=== PATIENT | female | born 1985 | race Caucasian/White ===

== ENCOUNTER → 2020-03-02 11:11 | Outpatient (CLI) | payer OTHER, MEDICAID, SELFPAY ==
--- NOTE | 2020-03-02 | DI.MRI.S_ITS ---
PROCEDURE: MR HEAD/BRAIN WO/W CON INDICATIONS: Paresthesia of skin TECHNIQUE: Noncontrast axial T1 spin echo, axial T2 fast spin echo, sagittal and axial FLAIR, coronal T2 fast spin echo, axial gradient echo, axial diffusion and ADC through the brain. After the administration of contrast, axial and coronal 3D VIBE or T1 spin echo with fat saturation through the brain. COMPARISON: None. FINDINGS: Image quality: Excellent. CSF Spaces: Basal cisterns are patent. No extra-axial fluid collections. Ventricles are normal in size and shape. Brain: No midline shift. No intracranial bleeds or masses. No abnormal intracranial enhancement. The brainstem appears normal. Diffusion-weighted images demonstrate no acute ischemic insults. No chronic ischemic insults. Normal intravascular flow voids are present. Skull and face: Calvarial marrow is normal in signal. Orbits appear normal. Sinuses: Sinuses and mastoids appear clear. IMPRESSION: No acute intracranial finding, brain parenchymal signal abnormality, intracranial mass, or abnormal intracranial enhancement. Dictated by: Ryder Méndez M.D. on 03/02/2020 at 12:14 Approved by: Ryder Méndez M.D. on 03/02/2020 at 12:17
== END ==
PROVIDERS: Family Provider Family Medicine; PCP Family Medicine; Referring Provider Family Medicine; Visit Provider Psychiatry & Neurology Neurology
DX: G43.719 Chronic migraine without aura, intractable, without status migrainosus (principal); R20.2 Paresthesia of skin
CPT/HCPCS: 70553; A9579

== ENCOUNTER → 2020-08-08 11:41 | Outpatient (CLI) | payer OTHER, MEDICAID, SELFPAY ==
--- NOTE | 2020-08-08 11:43 | DI.RAD.S_ITS ---
PROCEDURE: XR LUMBAR SPINE MIN 4V INDICATIONS: lumbar radiculopathy TECHNIQUE: For views of the lumbar spine were acquired. COMPARISON: [facility], [facility], MRI L-SPINE W/O CONTRAST, 06/27/2018, 9:04. [facility], [facility], XR L-SPINE 2-3V, 08/16/2017, 10:17. FINDINGS: Bones: 5 nonrib-bearing vertebrae are present. There is trace retrolisthesis of L4 on L5 and L5 on S1. Severe foraminal narrowing is present L4-5 and L5-S1. Multilevel non bridging anterior osteophytes are present from L3 through L5. Moderate to severe disc space narrowing is present at L3-4, L5-S1, moderate L2-3 and L4-5. No vertebral body compression fractures. No suspicious bony lesions. Soft tissues: Overlying bowel gas pattern is normal. No suspicious soft tissue calcifications. Oblique images: No pars defects. IMPRESSION: Foraminal narrowing is most notable at L4-5 and L5-S1. Dictated by: Elicia Daniels M.D. on 08/08/2020 at 16:32 Approved by: Elicia Daniels M.D. on 08/08/2020 at 16:33
== END ==
PROVIDERS: Family Provider Family Medicine; PCP Family Medicine; Referring Provider Physical Medicine & Rehabilitation; Visit Provider Physical Medicine & Rehabilitation
DX: M54.17 Radiculopathy, lumbosacral region (principal); M48.061 Spinal stenosis, lumbar region without neurogenic claudication; M48.07 Spinal stenosis, lumbosacral region; M47.817 Spondylosis without myelopathy or radiculopathy, lumbosacral region; F20.9 Schizophrenia, unspecified; E66.01 Morbid (severe) obesity due to excess calories; Z68.41 Body mass index [BMI] 40.0-44.9, adult
CPT/HCPCS: 72110; 99214

== ENCOUNTER → 2020-09-26 14:57 | Outpatient (CLI) | payer OTHER, MEDICAID, SELFPAY ==
[2020-09-26 16:28] LABS: COVID19 -Nasal RAPID Negative (Negative)
== END ==
PROVIDERS: Family Provider Family Medicine; PCP Family Medicine; Visit Provider Physical Medicine & Rehabilitation
DX: Z20.822 Contact with and (suspected) exposure to COVID-19 (principal)
CPT/HCPCS: 87635; C9803

== ENCOUNTER 2020-09-27 14:46 | Outpatient (CLI) | payer OTHER, MEDICAID, SELFPAY ==
[2020-09-27] VITALS (8 sets, daily range): BP systolic 110–146; BP diastolic 60–91; PULSE 87–95; RESP 13–19; TEMP 36.4–36.6; O2SAT 95–99
--- NOTE | 2020-09-27 14:47 | DI.RAD.S_ITS ---
PROCEDURE: PAIN L INTERLAMINAR/CAUDAL INJ INDICATIONS: SPONDYLOSIS COMPARISON: None. FINDINGS: Fluoroscopic spot filming was performed to verify placement of spinal needles at the L4-L5 level(s), as labeled on the films. Appropriate location(s) of the needle tip(s) was confirmed by injection of iodinated contrast. Dictated by: Jaren Grady M.D. on 09/27/2020 at 16:42 Approved by: Jaren Grady M.D. on 09/27/2020 at 16:43
[2020-09-27] MEDS: MIDAZOLAM 5 MG/5 ML VIAL IV (15:11)
[2020-09-27] MEDS: fentaNYL 100 MCG/2 ML INJ 50 MCG IV (15:11)
[2020-09-27] MEDS: IOPAMIDOL 15 ML VIAL 3 ML INJ (15:17)
[2020-09-27] MEDS: BUPIVACAINE 0.25% (PF) VIAL 5 ML SUBCUT (15:17)
[2020-09-27] MEDS: DEXAMETHASONE 10 MG/ML VIAL 20 MG INJ (15:18)
[2020-09-27] MEDS: BETAMETHASONE 30 MG/5 ML MDV 6 MG INJ (15:18)
--- NOTE | 2020-09-27 15:24 | P.PCN_ITS ---
Date/Time/Diagnoses Date of procedure: 09/27/20 Time of procedure: 15:24 Pre-procedure diagnosis: 1. HNP WITH RADICULAR FEATURES, 2. MULTILEVEL CENTRAL STENOSIS, Post-procedure diagnosis: same Procedure Notes Procedure: 1. FLUOROSCOPICALLY GUIDED CONTRAST CONTROLLED INTERLAMINAR EPIDURAL STEROID INJECTION -L4/5 Indications: Edith is referred by Dr. Ryan for treatment of Bilateral Foraminal Stenosis R>L LE symptoms. Physician: Dk De Total Fluoroscopy time (seconds): 7 Total sedation minutes: 8 Complications: none Procedure in detail & Post-procedure care: FINDINGS Multilevel Central Spinal Stenosis with Nerve Root Compression DESCRIPTION OF PROCEDURE Fluoroscopically guided, contrast-controlled L4/5 translaminar epidural steroid injection. Following review of allergy and review of potential side effects and complications, including, but not necessarily limited to, infection, allergic reaction, local tissue breakdown, temporary as well as permanent nerve injury, paralysis, stroke and possible , the patient indicated that the patient understood and agreed to proceed. An informed consent document was signed by the patient, witnessed by a nurse, and placed in the patient's chart. Additionally, other treatment options including modalities, medications, and physical therapy were reviewed with the patient. After review of previous anaesthesic history and IV conscious sedation the patient was deemed safe to proceed with today?s procedure with IV conscious sedation as ASA class II designation. Safety time-out was performed to confirm patient ID, procedure to be performed and site of procedure. IV sedation was accomplished with a combination of 2mg of Versed and 50mcg of Fentanyl was administered by the RN after DO order, titrated to patient comfort during the course of the procedure while the patient remained responsive to all verbal commands In the prone position, following sterile prep and drape of the lumbar region, the L4/5 translaminar space was identified fluoroscopically. The skin was anesthetized via a 25-gauge, 1.5inch needle with 1% lidocaine solution. At this point, a 22-gauge short bevel spinal needle was atraumatically introduced and advanced under fluoroscopic guidance into the region of the L4/5 translaminar space. Depth was confirmed on lateral view. Radiological data, including multiple fluoroscopic views of the lumbar spine, reveal a spinal needle at the L4/5 translaminar space. Lateral views then show placement of the needle in the epidural space. Subsequent views show contrast material flowing superiorly and inferiorly in the epidural space. No vascular or intrathecal uptake is observed. At this point, using loss of resistance technique with saline and air, the epidural space was entered. This was confirmed following negative aspiration with injection of approximately 1.5cc of Isovue 200, showing excellent epidural flow without vascular or intrathecal uptake. At this point, 1cc of 1% lidocaine solution combined with 3cc or 20mg of dexamethasone and 6mg betamethasone was injected without incident. The patient tolerated the procedure well without signs or symptoms of complica tions prior to transfer to the recovery area continued monitoring without incident. The patient was then transferred to the recovery area where they were observed for an appropriate period of time after the injection. The patient reported a VAS score of 6 prior to the procedure and a post- procedure VAS of 0. POST OP INSTRUCTIONS The patient was provided a Pain Log to continue to record their response to the target-specific procedure prior to follow-up visit with their referring physician. Additionally, specific post-injection care instructions and a contact number to our office were provided if concerns arise regarding possible complications associated with the procedure are suspected.
== END 2020-09-27 15:41 | disposition home or self-care (01) ==
LOC: RAD 14:46
PROVIDERS: Family Provider Family Medicine; PCP Family Medicine; Referring Provider Physical Medicine & Rehabilitation; Visit Provider Physical Medicine & Rehabilitation
DX: M51.16 Intervertebral disc disorders with radiculopathy, lumbar region (principal); M48.061 Spinal stenosis, lumbar region without neurogenic claudication
CPT/HCPCS: 62323; J0702; J1100; J2250; J3010

== ENCOUNTER 2020-10-07 16:14 | Emergency (ER) | payer OTHER, MEDICAID, SELFPAY ==
[2020-10-07 16:28] VITALS: BP 131/99; PULSE 126; RESP 19; TEMP 36.7; O2SAT 98; BMI 46.2
--- NOTE | 2020-10-07 17:06 | PC.NURSE ---
Pt had steroid injection on 09/28 in back for chronic pain. This exacerbated her anxiety and she ran out of diazepam. Pt is mildly autistic, per caregiver report. Pt sitting up on bed, slightly rocking side to side.
[2020-10-07] MEDS: LORazepam 0.5 MG TABLET 1 MG PO ×2 (18:05→18:47)
--- NOTE | 2020-10-07 18:45 | ED_ITS ---
HPI - Anxiety <ANDREY Blair - Last Filed: 10/07/20 19:43> General Chief Complaint: Anxiety Stated Complaint: ANXIETY Time Seen by Provider: 10/07/20 17:04 Source: patient and other Mode of arrival: Family Vehicle Limitations: no limitations History of Present Illness HPI narrative: This is a 35-year-old female, former smoker, who presents to ED with caregiver Sol with chief complain of feeling agitated and having anxiety all day for a week after receiving a steroid injection in the back at the pain clinic by Dr. De on 09/27/20. Patient has past medical history signi ficant for chronic back pain, schizophrenia, primary insomnia, ADHD, chronic fatigue, DDD. Patient reports she is known to have sensitivity to oral steroids but it has not been real lasting this long. She has been having symptoms such as agitation, anxiety, insomnia for 1 week and has not been able to sleep more than 2 hours a day. Patient was discharged to home with Valium but this medication has ran out. Otherwise she denies chest pain, breathing difficulty, unable to tolerate fluids, abdominal pain, or fever. She is not able to take Benadryl due to rest leg syndrome which interferes with sleep even more. Patient takes Zyprexa 10 mg at night which has not being helping with sleep. Patient attempted to see her primary care physician Dr. Brown but was not able to get an appointment and when she tried to reach out to Dr. De is a day the office is closed. She recommended for ED visit and treatment per PCP. Patient reports her back pain is 80% improved since the steroid injection however. Related Data Home Medications Medication Instructions Recorded Confirmed buspar 7.5 mg PO BID 03/23/19 08/08/20 olanzapine 15 mg tablet 15 mg PO DAILY 03/23/19 10/07/20 omeprazole 40 mg capsule,delayed 40 mg PO DAILY 03/23/19 08/08/20 release gabapentin 800 mg tablet mg PO TID tab 08/08/20 08/08/20 meloxicam 15 mg tablet mg PO DAILY tab 08/08/20 08/08/20 polyethylene glycol 3350 17 8.5 g PO DAILY PRN g 08/08/20 08/08/20 gram/dose oral powder sertraline 50 mg tablet 100 mg PO DAILY tab 08/08/20 10/07/20 hydrocodone-acetaminophen 1 tab PO Q6HP PRN 10/07/20 10/07/20 Previous Rx's Medication Instructions Recorded sumatriptan succinate [Imitrex] 25 mg PO SEE INSTRUCTIONS PRN #9 07/18/16 tab lidocaine 5 % topical patch 1 patch TOP DAILY #30 each MDD 12 04/15/19 hours in a 24 hour period diazepam 10 mg tablet 10 mg PO .COMPLEX PRN #10 tab 08/08/20 lorazepam [Ativan] 1 - 2 mg PO BEDTIME PRN #5 tab 10/07/20 Allergies Allergy/AdvReac Type Severity Reaction Status Date / Time Penicillins [PENICILLINS] Allergy Intermediate RASH Verified 10/07/20 16:36 Sulfa (Sulfonamide Allergy Intermediate RASH Verified 10/07/20 16:36 Antibiotics) [SULFA (SULFONAMIDE ANTIBIOTICS)] Review of Systems <ANDREY Blair - Last Filed: 10/07/20 19:43> Review of Systems Narrative: General: Denies fever, chills, fatigue, malaise, sweats. HEENT: Denies sinus pain, ear pain, sore throat, difficulty swallowing, dizziness. Respiratory: Denies dyspnea, cough, wheezing, hemoptysis, sputum. Cardiovascular: Denies chest pain, palpitations, orthopnea, edema. Gastrointestinal: Denies (+) nausea, vomiting, abdominal pain, diarrhea, constipation, melena. : Denies dysuria, frequency, incontinence, hematuria, urinary retention. Musculoskeletal: Denies weakness, joint pain or bony pain. Skin: Denies rash, skin lesions, or other. Neurologic: See HPI Psychiatric: No concerning psychosocial issues. 12-point review of systems is negative except for those stated above. Patient History <ANDREY Blair - Last Filed: 10/07/20 19:43> Medical History Morbid obesity due to excess calories Social History Smoking Status: Former smoker Smoking Status: Former smoker tobacco type: cigarettes alcohol intake frequency: 0-2 drinks per day Substance Use Type: marijuana Exam <ANDREY Blair - Last Filed: 10/07/20 19:43> Narrative Exam Narrative: GEN: Alert, oriented x 3, well appearing and nourished and appears to be anxious rocking back and forth while sitting in bed. Head: Normal cephalic, atraumatic. No scalp or temporal tenderness, palpable mass or rash. EYES: Pupils are equal, round, and reactive to light and accommodation. Extraocular muscles are intact bilaterally. There is no subconjunctival hemorrhage, exudate and sclera non-icteric. ENT: Hearing grossly intact. Mucous membrane moist, no mucosal lesion. Throat without erythema, tonsillar hypertrophy or exudate. Uvula in midline, airway patent. Neck: Trachea in midline. No JVD, non-tender without lymphadenopathy. No masses or thyroid megaly. Supple, non-tender and no meningeal signs. CARDIAC: Normal regular rate and rhythm without murmurs, gallops, or rubs. No chest wall tenderness. No peripheral edema, cyanosis or pallor. Capillary refill is less than 2 seconds. RESPIRATORY: Lungs are clear to auscultate bilaterally. No cough, wheezes, rales, or rhonchi. No stridor, respiratory distress, increase work of breathing, or accessary muscle used. ABD: Abdomen soft, nontender and non-distended. No guarding or rebound tenderness to palpate. Bowel sounds are normal in all 4 quadrants. There is no palpable masses or organomegaly. EXT: Full painless ROM of all extremities with no loss of sensation, strength, effusion or edema. SKIN: Warm, dry, normal color for patient. No erythema, lesions or rash over visible areas. BACK: Nontender without deformity or crepitance. No flank tenderness. NEUROLOGICAL: Alert and oriented to place, time and person. Sensation and motor function intact bilaterally. No facial droops, dysphasia. PSYCHIATRIC: Good judgement and reason, without hallucinations during the examination. Patient is not suicidal. Initial Vital Signs Initial Vital Signs: Vital Signs Temperature 98.1 F 10/07/20 16:28 Pulse Rate 126 H 10/07/20 16:28 Respiratory Rate 19 10/07/20 16:28 Blood Pressure 131/99 H 10/07/20 16:28 Pulse Oximetry 98 10/07/20 16:28 <Patricia Fofana, DO - Last Filed: 10/08/20 07:16> Initial Vital Signs Initial Vital Signs: Vital Signs Temperature 98.1 F 10/07/20 16:28 Pulse Rate 126 H 10/07/20 16:28 Respiratory Rate 19 10/07/20 16:28 Blood Pressure 131/99 H 10/07/20 16:28 Pulse Oximetry 98 10/07/20 16:28 Scores <YANY BlairP - Last Filed: 10/07/20 19:43> GCS Nataly coma scale eye opening: Spontaneous Nataly coma scale verbal response: Orientated Nataly coma scale motor response: Obey commands Nataly coma scale total score: 15 Course <YANY BlairP - Last Filed: 10/07/20 19:43> Orders Ordered: Discontinued Medications Lorazepam (Lorazepam 0.5 Mg Tablet) 1 mg PO NOW ONE Stop: 10/07/20 17:57 Last Admin: 10/07/20 18:05 Dose: 1 mg Documented by: SOTO Lorazepam (Lorazepam 0.5 Mg Tablet) 1 mg PO NOW ONE Stop: 10/07/20 18:45 Last Admin: 10/07/20 18:47 Dose: 1 mg Documented by: SOTO Reevaluation(s) Reevaluation #1: Patient medicated with additional Ativan 1 mg total 2 mg since was insufficient with 1 mg initially. Patient reports feeling much improved and ready to go home. Time: 19:00 Vital Signs Vital signs: Vital Signs - 8 hr 10/07/20 16:28 Temperature 98.1 F Pulse Rate 126 H Respiratory Rate 19 Blood Pressure 131/99 H Pulse Oximetry 98 <Patricia Fofana DO - Last Filed: 10/08/20 07:16> Orders Ordered: Discontinued Medications Lorazepam (Lorazepam 0.5 Mg Tablet) 1 mg PO NOW ONE Stop: 10/07/20 17:57 Last Admin: 10/07/20 18:05 Dose: 1 mg Documented by: SOTO Lorazepam (Lorazepam 0.5 Mg Tablet) 1 mg PO NOW ONE Stop: 10/07/20 18:45 Last Admin: 10/07/20 18:47 Dose: 1 mg Documented by: SOTO Vital Signs Vital signs: Vital Signs - 8 hr 10/07/20 16:28 Temperature 98.1 F Pulse Rate 126 H Respiratory Rate 19 Blood Pressure 131/99 H Pulse Oximetry 98 MDM - Anxiety <ANDREY Blair - Last Filed: 10/07/20 19:43> Differential Diagnosis Differential diagnosis: Likely acute anxiety and other (Insomnia, side effects from medication) Medical Records Attestation: I reviewed the patient's medical records. [facility] Narrative Medical decision making narrative: This is a 35-year-old female who presents to ED with caregiver with chief complain of feeling agitated and insomnia after she received steroid injection in her back for chronic back pain 10 days ago at pain clinic by Dr. De. Patient reports had used all her Valium when she was discharged after the procedure and presents to ED for treatment after she was not able to evaluate by her primary care physician today. Patient was medicated with 1 mg Ativan increment twice with good effect. Patient discharged to home with few tabs of Ativan over a week and use and advised to follow up with her primary care physician and call Dr. De office Saturday to discuss findings since her symptoms are likely sensitivity to steroids as she has known steroids sensitivity. Return precautions discussed with patient and she verbalized understanding in agreement with the treatment plan. Discharge Plan Departure Patient Disposition: Home Clinical Impression: Anxiety, Drug side effects Instructions: DI for Anxiety -- Adult Activity Restrictions/Additional Instructions: You have been diagnosed with [anxiety possibly as side effect from steroids]. What to do: *Take your medications as directed. Please take Ativan as needed for your symptoms. You can take 1-2 tabs as needed. Please avoid taking it with other sedating medications such as Zyprexa, [place] since this can add increasing in sedation. This medication has been transmitted to [facility] in [place]. *Follow up with your primary care provider/Dr. De on Saturday, call for an appointment. Let them know you were seen in the ED and that we asked you to be seen in follow up. *Return to ED if you have any new, worsening, or concerning symptoms, such as [worsening symptoms, chest pain, breathing difficulty, unable to tolerate fluids, fever or any acute concerns]. Prescriptions: New lorazepam [Ativan] 1 mg tablet 1 - 2 mg PO BEDTIME PRN (Reason: anxiety) Qty: 5 RF: 0 No Action sumatriptan succinate [Imitrex] 25 MG tablet 25 mg PO SEE INSTRUCTIONS PRNQty: 9 RF: 5 lidocaine 5 % adhesive patch,medicated 1 patch TOP DAILY MDD 12 hours in a 24 hour period Qty: 30 RF: 2 hydrocodone-acetaminophen 5 MG/325 MG tablet 1 tab PO Q6HP PRN (Reason: Back Pain) RF: 0 buspar 7.5 mg PO BID RF: 0 olanzapine [Zyprexa] 15 mg tablet 15 mg PO DAILY RF: 0 omeprazole 40 mg capsule,delayed release(DR/EC) 40 mg PO DAILY RF: 0 sertraline 50 mg tablet 100 mg PO DAILY RF: 0 gabapentin 800 mg tablet PO TID RF: 0 meloxicam 15 mg tablet PO DAILY RF: 0 polyethylene glycol 3350 17 gram/dose powder 8.5 g PO DAILY PRNRF: 0 diazepam [Valium] 10 mg tablet 10 mg PO .COMPLEX PRN (Reason: sedation) Qty: 10 RF: 0 Referrals: Winston Ryan MD [Primary Care Provider] - <Patricia Fofana DO - Last Filed: 10/08/20 07:16> Cosign ED Attending Coshectorature Attestation: I was immediately available in the department for consultation. Documentation has been reviewed.
[2020-10-07 19:39] VITALS: BP 118/88; PULSE 88; RESP 14; O2SAT 99
== END 2020-10-07 19:40 | disposition home or self-care (01) ==
PROVIDERS: Emergency Provider Nurse Practitioner Family; Family Provider Family Medicine; PCP Family Medicine
DX: F41.1 Generalized anxiety disorder (principal); G47.00 Insomnia, unspecified; T50.905A Adverse effect of unspecified drugs, medicaments and biological substances, initial encounter
CPT/HCPCS: 99281; 99283

== ENCOUNTER → 2021-02-20 08:10 | Outpatient (CLI) | payer OTHER, MEDICAID, SELFPAY ==
[2021-02-20 16:08] LABS: COVID19 -Nasal RAPID Negative (Negative)
== END ==
PROVIDERS: Family Provider Family Medicine; PCP Family Medicine; Visit Provider Physical Medicine & Rehabilitation
DX: Z20.822 Contact with and (suspected) exposure to COVID-19 (principal)
CPT/HCPCS: 87635; C9803

== ENCOUNTER 2021-02-21 15:21 | Outpatient (CLI) | payer OTHER, MEDICAID, SELFPAY ==
[2021-02-21] VITALS (8 sets, daily range): BP systolic 109–176; BP diastolic 65–101; PULSE 98–123; RESP 15–22; TEMP 36.7; O2SAT 95–98
--- NOTE | 2021-02-21 15:23 | DI.RAD.S_ITS ---
PROCEDURE: PAIN L INTERLAMINAR/CAUDAL INJ INDICATIONS: SPONDYLOSIS COMPARISON: [facility], XA, PAIN L INTERLAMINAR/CAUDAL INJ, 09/27/2020, 15:13. FINDINGS: Fluoroscopic spot filming was performed to verify placement of spinal needles at the dorsal L3-4 level level(s), as labeled on the films. Appropriate location(s) of the needle tip(s) was confirmed by injection of iodinated contrast. IMPRESSION: L3-4 needle tip localization for translaminar epidural steroid injection. Dictated by: Maikol Newton M.D. on 02/21/2021 at 17:33 Approved by: Maikol Newton M.D. on 02/21/2021 at 17:33
[2021-02-21] MEDS: fentaNYL 100 MCG/2 ML INJ 50 MCG IV (16:07)
[2021-02-21] MEDS: MIDAZOLAM 5 MG/5 ML VIAL IV (16:07)
[2021-02-21] MEDS: IOPAMIDOL 15 ML VIAL 3 ML INJ (16:11)
[2021-02-21] MEDS: DEXAMETHASONE 10 MG/ML VIAL 20 MG INJ (16:12)
[2021-02-21] MEDS: BETAMETHASONE 30 MG/5 ML MDV 6 MG INJ (16:12)
[2021-02-21] MEDS: BUPIVACAINE 0.25% (PF) VIAL 2 ML INJ (16:12)
--- NOTE | 2021-02-21 16:21 | P.PCN_ITS ---
Date/Time/Diagnoses Date of procedure: 02/21/21 Time of procedure: 16:22 Pre-procedure diagnosis: 1. HNP WITH RADICULAR FEATURES, 2. MULTILEVEL CENTRAL STENOSIS, Post-procedure diagnosis: same Procedure Notes Procedure: 1. FLUOROSCOPICALLY GUIDED CONTRAST CONTROLLED INTERLAMINAR EPIDURAL STEROID INJECTION - L3/4 Indications: Edith is referred by Dr. Ryan for treatment of Bilateral Foraminal Stenosis L>R LE symptoms. Physician: Dk De Total Fluoroscopy time (seconds): 9 Total sedation minutes: 9 Complications: none Procedure in detail & Post-procedure care: FINDINGS Multilevel Central Spinal Stenosis with Nerve Root Compression DESCRIPTION OF PROCEDURE Fluoroscopically guided, contrast-controlled L3/4 translaminar epidural steroid injection. Following review of allergy and review of potential side effects and complications, including, but not necessarily limited to, infection, allergic reaction, local tissue breakdown, temporary as well as permanent nerve injury, paralysis, stroke and possible , the patient indicated that the patient understood and agreed to proceed. An informed consent document was signed by the patient, witnessed by a nurse, and placed in the patient's chart. Additionally, other treatment options including modalities, medications, and physical therapy were reviewed with the patient. After review of previous anaesthesic history and IV conscious sedation the patient was deemed safe to proceed with today?s procedure with IV conscious sedation as ASA class II designation. Safety time-out was performed to confirm patient ID, procedure to be performed and site of procedure. IV sedation was accomplished with a combination of 2mg of Versed and 50mcg of Fentanyl was administered by the RN after DO order, titrated to patient comfort during the course of the procedure while the patient remained responsive to all verbal commands. In the prone position, following sterile prep and drape of the lumbar region, the L3/4 translaminar space was identified fluoroscopically. The skin was anesthetized via a 25-gauge, 1.5-inch needle with 1% lidocaine solution. At this point, a 22-gauge short bevel spinal needle was atraumatically introduced and advanced under fluoroscopic guidance into the region of the L3/4 translaminar space. Depth was confirmed on lateral view. Radiological data, including multiple fluoroscopic views of the lumbar spine, reveal a spinal needle at the L3/4 translaminar space. Lateral views then show placement of the needle in the epidural space. Subsequent views show contrast material flowing superiorly and inferiorly in the epidural space. No vascular or intrathecal uptake is observed. At this point, using loss of resistance technique with saline and air, the epidural space was entered. This was confirmed following negative aspiration with injection of approximately 1.5 cc of Isovue 200, showing excellent epidural flow without vascular or intrathecal uptake. At this point, 1cc of 1% lidocaine solution combined with 3cc or 20mg of dexamethasone and 6mg of betamethasone was injected without incident. The patient tolerated the procedure well without signs or symptoms of complications prior to transfer to the recovery area continued monitoring without incident. The patient was then transferred to the recovery area where they were observed for an appropriate period of time after the injection. The patient reported a VAS score of 6 prior to the procedure and a post- procedure VAS of 0. POST OP INSTRUCTIONS The patient was provided a Pain Log to continue to record their response to the target-specific procedure prior to follow-up visit with their referring physician. Additionally, specific post-injection care instructions and a contact number to our office were provided if concerns arise regarding possible complications associated with the procedure are suspected.
== END 2021-02-21 16:37 | disposition home or self-care (01) ==
LOC: RAD 15:22
PROVIDERS: Family Provider Family Medicine; PCP Family Medicine; Referring Provider Physical Medicine & Rehabilitation; Visit Provider Physical Medicine & Rehabilitation
DX: M51.16 Intervertebral disc disorders with radiculopathy, lumbar region (principal); M48.061 Spinal stenosis, lumbar region without neurogenic claudication
CPT/HCPCS: 62323; J0702; J1100; J2250; J3010

== ENCOUNTER → 2021-10-23 16:42 | Outpatient (CLI) | payer OTHER, MEDICAID, SELFPAY ==
--- NOTE | 2021-10-23 16:44 | DI.RAD.S_ITS ---
PROCEDURE: XR CERVICAL SPINE 4V OR 5V INDICATIONS: neck pain and UE symptoms TECHNIQUE: 3 views of the cervical spine acquired. COMPARISON: None. FINDINGS: Bones: Straightening of the normal cervical lordosis may be related to muscle spasm or positioning. Disc space narrowing anterior osteophytes no in the mid cervical spine. Bone mineralization and craniovertebral relationships normal. Soft tissues: No prevertebral soft tissue swelling. IMPRESSION: Straightening of the normal cervical lordosis may be related to muscle spasm or positioning. Degenerative disc disease and arthropathy in the mid cervical spine Approved by: Kevyn Roman M.D. on 10/23/2021 at 16:34
--- NOTE | 2021-10-23 16:44 | DI.RAD.S_ITS ---
PROCEDURE: XR THORACIC SPINE 3V INDICATIONS: thoracic pain TECHNIQUE: 3 views of the thoracic spine were acquired. COMPARISON: [facility], , THORACIC SPINE 3 VIEWS, 01/07/2017, 17:22. FINDINGS: Bones: No fractures or dislocations. No suspicious bony lesions. 12 pairs of ribs are noted, and appear intact where visualized. Mild thoracic dextroscoliosis again noted, stable. Mild degenerative disc space narrowing present in the mid thoracic spine. Soft tissues: No paravertebral stripe thickening. IMPRESSION: Mild degenerative changes without fracture or malalignment. Approved by: Kevyn Roman M.D. on 10/23/2021 at 16:41
--- NOTE | 2021-10-23 16:44 | DI.MRI.S_ITS ---
PROCEDURE: MR CERVICAL SPINE WO CON INDICATIONS: cervical radiculopathy TECHNIQUE: Noncontrast sagittal T1 spin echo and T2 fast spin echo, sagittal STIR, foraminal oblique sagittal T2 fast spin echo, and axial gradient echo or T2 fast spin echo through the cervical spine. COMPARISON: [facility], CR, XR CERVICAL SPINE 4V OR 5V, 10/23/2021, 16:34. FINDINGS: Degenerative straightening of the usual cervical lordosis. Otherwise normal alignment. Vertebral body heights maintained. No suspicious focal marrow signal abnormality or bone marrow edema. Susceptibility artifact suggestive of possible ossification of the posterior longitudinal ligament at multiple levels. Prevertebral and paraspinous soft tissues are within normal limits. Normal morphology and signal intensity of the cervical cord. There is no syrinx. C2-C3: Moderate right and mild left neural foraminal stenosis due to facet and uncovertebral hypertrophy. No spinal canal stenosis. C3-C4: Moderate to severe neural foraminal narrowing on the right and mild neural foraminal narrowing on the left due to facet and uncovertebral hypertrophy. No spinal canal stenosis. C4-C5: No spinal canal stenosis. Moderate right and mild left neural foraminal stenosis due to facet and uncovertebral hypertrophy. C5-C6: Mild bilateral neural foraminal stenosis due to facet and uncovertebral hypertrophy. Mild spinal canal stenosis due to posterior disc osteophyte complex flattening and indenting the ventral cord, particularly in the right paracentral zone and lateral recess. C6-C7: No spinal canal stenosis. Facet and uncovertebral hypertrophy combine to produce moderate left and mild right neural foraminal stenosis. C7-T1: No spinal canal or neural foraminal stenosis. IMPRESSION: Varying degrees of neural foraminal stenosis up to moderate-severe. Mild spinal canal stenosis at C5-C6. 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 Dictated by: Ryder Méndez M.D. on 10/24/2021 at 9:57 Approved by: Ryder Méndez M.D. on 10/24/2021 at 10:00
--- NOTE | 2021-10-23 16:47 | DI.RAD.S_ITS ---
PROCEDURE: XR CHEST 2V INDICATIONS: Chest pain TECHNIQUE: 2 views of the chest were acquired. COMPARISON: None. FINDINGS: Surgical changes and devices: None. Lungs and pleura: Lungs are clear. No pleural effusions or pneumothorax. Mediastinum: Mediastinal contours are normal. Heart size is normal. Bones and chest wall: No suspicious bony abnormalities. Soft tissues appear unremarkable. IMPRESSION: No acute cardiopulmonary process demonstrated radiographically. Dictated by: Ryder Méndez M.D. on 10/24/2021 at 8:20 Approved by: Ryder Méndez M.D. on 10/24/2021 at 8:23
== END ==
PROVIDERS: Family Provider Family Medicine; PCP Family Medicine; Referring Provider Orthopaedic Surgery; Visit Provider Physical Medicine & Rehabilitation
DX: M47.22 Other spondylosis with radiculopathy, cervical region (principal); M50.10 Cervical disc disorder with radiculopathy, unspecified cervical region; M48.02 Spinal stenosis, cervical region; M47.814 Spondylosis without myelopathy or radiculopathy, thoracic region; S39.012A Strain of muscle, fascia and tendon of lower back, initial encounter; R07.9 Chest pain, unspecified
CPT/HCPCS: 71046; 72050; 72072; 72141

== ENCOUNTER 2022-04-12 15:13 | Emergency (ER) | payer OTHER, MEDICAID, SELFPAY ==
[2022-04-12] VITALS (15 sets, daily range): BP systolic 127–167; BP diastolic 85–109; PULSE 98–142; RESP 10–32; TEMP 37.1; O2SAT 95–99; BMI 44.2
[2022-04-12 16:48] LABS: Add Manual Diff / Slide Review NO; Basophils Absolute Auto 0 /uL (0-100); Basophils Percent Auto 0.3 % (0-2); Eosinophils Absolute Auto 400 /uL (0-450); Lymphocytes Absolute Auto 1300 /uL (1100-4500); Lymphocytes Percent Auto 13.9 % (25-40); Mean Corpuscular HGB Conc 34.2 % (30-36); Mean Corpuscular Hemoglobin 29.6 PG (26-34); Mean Corpuscular Volume 86.5 fL (80-100); Monocytes Absolute Auto 400 /uL (0-900); Monocytes Percent Auto 4.7 % (3-14); Neutrophils Absolute Auto 7200 /uL (1500-7000); Neutrophils Percent Auto 77.1 % (50-75); Platelet Count 225 X10^3/uL (150-400); Red Blood Cell Count 4.05 X10^6/uL (4.0-5.2); Red Cell Distribution Width 13.1 % (11.6-14.8); White Blood Cell Count 9.3 X10^3/uL (4.5-11.0)
[2022-04-12 17:06] LABS: Alanine Aminotransferase 247 IU/L (<35); Albumin 4.2 g/dL (3.5-5.0); Albumin Globulin Ratio 1.4 (1.0-2.8); Alkaline Phosphatase 101 U/L (38-126); Aspartate Aminotransferase 367 IU/L (14-36); BUN Creatinine Ratio 19.3 (6-22); Bilirubin Total 1.4 mg/dL (0.2-1.3); Blood Urea Nitrogen 11 mg/dL (7-17); Calcium 8.5 mg/dL (8.4-10.2); Carbon Dioxide 27 mmol/L (22-32); Chloride 101 mmol/L (98-107); Estimated Glomerular Filt Rate > 60 mL/min (>60); Globulin 3.1 g/dL (1.7-4.1); Glucose 99 mg/dL (70-100); HEMOLYSIS < 15 (0-50); Lipase 50 U/L (23-300); Potassium 4.1 mmol/L (3.4-5.1); Sodium 139 mmol/L (137-145); Total Protein 7.3 g/dL (6.3-8.2)
--- NOTE | 2022-04-12 17:19 | DI.US.S_ITS ---
PROCEDURE: US ABDOMEN LIMITED INDICATIONS: RUQ TECHNIQUE: Real-time focused scanning was performed of the abdomen, with image documentation. COMPARISON: None. FINDINGS: Hepatomegaly. Diffuse increased echogenicity of the liver consistent with fatty change. Gallbladder is suboptimally visualized. No obvious stones. No significant wall thickening. Question edematous pancreas. IMPRESSION: 1. Hepatomegaly, diffuse hepatic steatosis. 2. Suboptimal visualization of the gallbladder, likely within normal limits. 3. Question pancreatic edema. Comment: Consider CT abdomen pelvis with contrast. Dictated by: Brendan Morocho M.D. on 04/12/2022 at 18:06 Approved by: Brendan Morocho M.D. on 04/12/2022 at 18:09
--- NOTE | 2022-04-12 17:20 | ED_ITS ---
HPI - Sepsis <ANDREY Garcia - Last Filed: 04/13/22 13:53> General Chief Complaint: Abdominal Pain Mode of arrival: Family Vehicle Source: patient Limitations: no limitations Evaluation Sepsis Screen: No Definite Risk Sepsis Infection Criteria Present: None Narrative: This is a 36-year-old female presents to the emergency department 1 week after a barium swallow for esophageal motility dysfunction and epigastric pain with testing completed at [facility] in [place]. Records have been requested, she comes in with worsening epigastric pain, esophageal motility concern and fear of aspiration. Patient is currently on a GERD diet, her primary care provider is Dr. Cazares, saw a Dr. Braga with Gastroenterology and has been taking omeprazole 40 mg daily. She has been instructed to use antacids as much as possible and she states she has been chewing them up. She denies having history of diabetes, states she is allergic to penicillin and sulfa. Patient also has a history of morbid obesity, NAIMA, states that she has dysphagia per her recent barium swallow at [facility], records were requested but no results were sent over from this scan. Patient had esophageal dilatation and EGD at [facility] on 01/25/2022. She states it was better for a while afterwards and then it got worse again. She states the pain across her upper abdomen has been worse than ever, she denies nausea and vomiting but states it feels like it is burning and she is had some small amounts of bright red blood in her stool. She states this has happened in the past, denies any known hemorrhoids, denies any rectal pain or pain with defecation. Denies any dysuria, flank pain, urinary urgency or frequency. Patient states that there is no chance of she states she is ?fixed? her boyfriend lives in [facility] and she is not sexually active. Patient endorses feeling hot and cold but denies chills or measured fever. Review of Systems <ANDREY Garcia - Last Filed: 04/13/22 13:53> Review of Systems Narrative: Review of systems is negative for acute abnormalities unless otherwise noted in HPI Patient History <ANDREY Garcia - Last Filed: 04/13/22 13:53> Medical History Cervical radiculopathy Morbid obesity due to excess calories Social History Smoking Status: Former smoker Smoking Status: Former smoker tobacco type: cigarettes alcohol intake frequency: 0-2 drinks per day Substance Use Type: marijuana Exam <ANDREY Garcia - Last Filed: 04/13/22 13:53> Narrative Exam Narrative: Reviewed vitals signs and nursing notes. General: cooperative, comfortable, in no acute distress, well groomed HEENT: symmetrical facial expressions, moist mucous membranes, EOMI, without stridor, no swallowing difficulties Cardiovascular: Tachycardic rate and regular rhythm, no murmur, no peripheral edema, warm extremities Respiratory: normal effort, able to speak in complete sentences, without wheezing, stridor, or abnormal breath sounds. No retractions or tachypnea. Breath sounds clear throughout all gu[place]pa GI: abdomen soft, tender to palpation in her epigastrium, obese, soft, nondistended, without masses, rebound tenderness or exquisite tenderness with exam. MSK: moves all extremities, neurovascularly intact, no weakness, normal tone Skin: brisk capillary refill, without pallor or erythema Neuro: normal speech and cognition, A&O x3, ambulatory, clear speech Psych: mental status is grossly normal, congruent mood, normal affect, pleasant and cooperative Initial Vital Signs Initial Vital Signs: Vital Signs Pulse Rate 142 H 04/12/22 16:26 Respiratory Rate 13 04/12/22 16:26 Pulse Oximetry 96 04/12/22 16:26 <Patricia Fofana DO - Last Filed: 04/13/22 06:49> Initial Vital Signs Initial Vital Signs: Vital Signs Pulse Rate 142 H 04/12/22 16:26 Respiratory Rate 13 04/12/22 16:26 Pulse Oximetry 96 04/12/22 16:26 Course <ANDREY Garcia - Last Filed: 04/13/22 13:53> Orders Ordered: Discontinued Medications Al Hydrox/Mg Hydrox/Simethicone 20 ml/ Lidocaine HCl 15 ml 0 ml PO NOW ONE Stop: 04/12/22 17:07 Last Admin: 04/12/22 17:56 Dose: 35 ml Documented By: JUAN MANUEL Diazepam (Diazepam 10 Mg/2 Ml Syringe) 5 mg IV NOW ONE Stop: 04/12/22 17:07 Last Admin: 04/12/22 17:54 Dose: 5 mg Documented By: JUAN MANUEL Hydromorphone HCl (Hydromorphone 1 Mg Inj) 1 mg IV NOW ONE Stop: 04/12/22 17:07 Last Admin: 04/12/22 17:53 Dose: 1 mg Documented By: JUAN MANUEL Hydromorphone HCl (Hydromorphone 1 Mg Inj) 1 mg IV NOW ONE Stop: 04/12/22 22:02 Last Admin: 04/12/22 22:14 Dose: 1 mg Documented By: JORDY Lactated Ringer's (Lactated Ringers) 1,000 mls @ 1,000 mls/hr IV BOLUS ONE Stop: 04/12/22 18:18 Last Infusion: 04/12/22 21:24 Dose: 0 mls/hr Documented By: Admin: 04/12/22 18:01 Dose: 1,000 mls/hr Documented By: JUAN MANUEL Sodium Chloride (Normal Saline 0.9%) 1,000 mls @ 1,000 mls/hr IV BOLUS ONE Stop: 04/12/22 22:55 Ketorolac Tromethamine (Ketorolac 30 Mg/Ml Vial) 15 mg IV NOW ONE Stop: 04/12/22 17:07 Last Admin: 04/12/22 17:55 Dose: 15 mg Documented By: JUAN MANUEL Pantoprazole Sodium (Pantoprazole 40 Mg Vial) 40 mg IV NOW ONE Stop: 04/12/22 17:07 Last Admin: 04/12/22 17:53 Dose: 40 mg Documented By: JUAN MANUEL Reevaluation(s) Reevaluation #1: Patient states that her pain is well controlled with her medications and she feels much better. Reevaluation #2: 2044, patient came back from [facility], states that her pain is under control currently. Vital Signs Vital signs: Vital Signs - 8 hr 04/12/22 16:28 04/12/22 16:38 04/12/22 16:26 Temperature 98.7 F Pulse Rate 140 H 119 H 142 H Respiratory Rate 20 13 Blood Pressure 127/93 H Pulse Oximetry 99 96 Oxygen Delivery Method Room Air 04/12/22 16:30 04/12/22 17:00 04/12/22 17:00 Temperature Pulse Rate 138 H 126 H Respiratory Rate 10 L 22 Blood Pressure 158/109 H Pulse Oximetry 97 97 Oxygen Delivery Method 04/12/22 17:30 04/12/22 17:30 04/12/22 18:00 Temperature Pulse Rate 118 H 120 H Respiratory Rate 14 32 H Blood Pressure 157/91 H Pulse Oximetry 97 97 Oxygen Delivery Method 04/12/22 18:30 04/12/22 19:00 04/12/22 19:30 Temperature Pulse Rate 112 H 118 H 113 H Respiratory Rate 16 17 14 Blood Pressure Pulse Oximetry 96 97 95 Oxygen Delivery Method Room Air 04/12/22 20:26 04/12/22 20:27 04/12/22 20:27 Temperature Pulse Rate 115 H 117 H Respiratory Rate Blood Pressure 167/85 H Pulse Oximetry 96 96 Oxygen Delivery Method 04/12/22 20:30 04/12/22 21:00 04/12/22 21:30 Temperature Pulse Rate 114 H 105 H 98 H Respiratory Rate 31 H 17 Blood Pressure Pulse Oximetry 97 96 96 Oxygen Delivery Method Room Air Room Air <Patricia Fofana DO - Last Filed: 04/13/22 06:49> Orders Ordered: Discontinued Medications Al Hydrox/Mg Hydrox/Simethicone 20 ml/ Lidocaine HCl 15 ml 0 ml PO NOW ONE Stop: 04/12/22 17:07 Last Admin: 04/12/22 17:56 Dose: 35 ml Documented By: JUAN MANUEL Diazepam (Diazepam 10 Mg/2 Ml Syringe) 5 mg IV NOW ONE Stop: 04/12/22 17:07 Last Admin: 04/12/22 17:54 Dose: 5 mg Documented By: JUAN MANUEL Hydromorphone HCl (Hydromorphone 1 Mg Inj) 1 mg IV NOW ONE Stop: 04/12/22 17:07 Last Admin: 04/12/22 17:53 Dose: 1 mg Documented By: JUAN MANUEL Hydromorphone HCl (Hydromorphone 1 Mg Inj) 1 mg IV NOW ONE Stop: 04/12/22 22:02 Last Admin: 04/12/22 22:14 Dose: 1 mg Documented By: JORDY Lactated Ringer's (Lactated Ringers) 1,000 mls @ 1,000 mls/hr IV BOLUS ONE Stop: 04/12/22 18:18 Last Infusion: 04/12/22 21:24 Dose: 0 mls/hr Documented By: Admin: 04/12/22 18:01 Dose: 1,000 mls/hr Documented By: JUAN MANUEL Sodium Chloride (Normal Saline 0.9%) 1,000 mls @ 1,000 mls/hr IV BOLUS ONE Stop: 04/12/22 22:55 Ketorolac Tromethamine (Ketorolac 30 Mg/Ml Vial) 15 mg IV NOW ONE Stop: 04/12/22 17:07 Last Admin: 04/12/22 17:55 Dose: 15 mg Documented By: JUAN MANUEL Pantoprazole Sodium (Pantoprazole 40 Mg Vial) 40 mg IV NOW ONE Stop: 04/12/22 17:07 Last Admin: 04/12/22 17:53 Dose: 40 mg Documented By: JUAN MANUEL Consultations Consultation #1: Dr. Wilcox, general surgery reviewed patient's findings, persistent tachycardia she states we could admit to medicine for observation but she feels patient is appropriate for discharge. Time: 22:06 Consultation #2: Dr. Treviño, hospitalist, case discussed. Vital Signs Vital signs: Vital Signs - 8 hr 04/12/22 16:28 04/12/22 16:38 04/12/22 16:26 Temperature 98.7 F Pulse Rate 140 H 119 H 142 H Respiratory Rate 20 13 Blood Pressure 127/93 H Pulse Oximetry 99 96 Oxygen Delivery Method Room Air 04/12/22 16:30 04/12/22 17:00 04/12/22 17:00 Temperature Pulse Rate 138 H 126 H Respiratory Rate 10 L 22 Blood Pressure 158/109 H Pulse Oximetry 97 97 Oxygen Delivery Method 04/12/22 17:30 04/12/22 17:30 04/12/22 18:00 Temperature Pulse Rate 118 H 120 H Respiratory Rate 14 32 H Blood Pressure 157/91 H Pulse Oximetry 97 97 Oxygen Delivery Method 04/12/22 18:30 04/12/22 19:00 04/12/22 19:30 Temperature Pulse Rate 112 H 118 H 113 H Respiratory Rate 16 17 14 Blood Pressure Pulse Oximetry 96 97 95 Oxygen Delivery Method Room Air 04/12/22 20:26 04/12/22 20:27 04/12/22 20:27 Temperature Pulse Rate 115 H 117 H Respiratory Rate Blood Pressure 167/85 H Pulse Oximetry 96 96 Oxygen Delivery Method 04/12/22 20:30 04/12/22 21:00 04/12/22 21:30 Temperature Pulse Rate 114 H 105 H 98 H Respiratory Rate 31 H 17 Blood Pressure Pulse Oximetry 97 96 96 Oxygen Delivery Method Room Air Room Air Sepsis Guideline Criteria <ANDREY Garcia - Last Filed: 04/13/22 13:53> Level 1 - Infection Sepsis Infection Criteria Present: None Treatment Initiated Antibiotics:: IV antimicrobials will be initiated as soon as possible after recognition of sepsis state and within one hour for both sepsis and septic shock. MDM - Sepsis <ANDREY Garcia - Last Filed: 04/13/22 13:53> Lab Data Result diagrams: 04/12/22 16:35 04/12/22 16:35 Labs: Lab Results 04/12/22 04/12/22 04/12/22 Range/Units 16:33 16:33 16:35 WBC 9.3 (4.5-11.0) X10^3/uL RBC 4.05 (4.0-5.2) X10^6/uL Hgb 12.0 (12.0-16.0) g/dL Hct 35.0 L (36-46) % MCV 86.5 (80-100) fL MCH 29.6 (26-34) PG MCHC 34.2 (30-36) % RDW 13.1 (11.6-14.8) % Plt Count 225 (150-400) X10^3/uL Neut % (Auto) 77.1 H (50-75) % Lymph % (Auto) 13.9 L (25-40) % [place] % (Auto) 4.7 (3-14) % Eos % (Auto) 4.0 (2-4) % Baso % (Auto) 0.3 (0-2) % Neut # (Auto) 7200 H (7528-3836) /uL Lymph # (Auto) 1300 (3584-8712) /uL [place] # (Auto) 400 (0-900) /uL Eos # (Auto) 400 (0-450) /uL Baso # (Auto) 0 (0-100) /uL Sodium (137-145) mmol/L Potassium (3.4-5.1) mmol/L Chloride (98-107) mmol/L Carbon Dioxide (22-32) mmol/L BUN (7-17) mg/dL Creatinine (0.52-1.04) mg/dL Estimated GFR (>60) mL/min BUN/Creatinine Ratio (6-22) Glucose (70-100) mg/dL Lactate 1.6 (0.7-2.1) mmol/L Calcium (8.4-10.2) mg/dL Total Bilirubin (0.2-1.3) mg/dL AST (14-36) IU/L ALT (<35) IU/L Alkaline Phosphatase (38-126) U/L C-Reactive Protein 2.4 H (<1.0) mg/dL Total Protein (6.3-8.2) g/dL Albumin (3.5-5.0) g/dL Globulin (1.7-4.1) g/dL Albumin/Globulin Ratio (1.0-2.8) Lipase (23-300) U/L Procalcitonin 0.23 (<0.5) ng/mL Urine Color Urine Appearance Urine pH (4.5-8.0) Ur Specific [place] (1.000-1.035) Urine Protein (Negative) Urine Glucose (UA) (Negative) g/dL Urine Ketones (NEGATIVE) Urine Occult Blood (Negative) Urine Nitrate (Negative) Urine Bilirubin (NEGATIVE) Urine Urobilinogen (0.2) E.U./dL Ur Leukocyte Esterase (NEGATIVE) Urine RBC (0-5/HPF) Urine WBC (0-5/HPF) Ur Squamous Epith Cells (0-5/HPF) Urine Bacteria (None) Ur Culture Indicated? 04/12/22 04/12/22 Range/Units 16:35 18:00 WBC (4.5-11.0) X10^3/uL RBC (4.0-5.2) X10^6/uL Hgb (12.0-16.0) g/dL Hct (36-46) % MCV (80-100) fL MCH (26-34) PG MCHC (30-36) % RDW (11.6-14.8) % Plt Count (150-400) X10^3/uL Neut % (Auto) (50-75) % Lymph % (Auto) (25-40) % [place] % (Auto) (3-14) % Eos % (Auto) (2-4) % Baso % (Auto) (0-2) % Neut # (Auto) (1867-4200) /uL Lymph # (Auto) (9264-4853) /uL [place] # (Auto) (0-900) /uL Eos # (Auto) (0-450) /uL Baso # (Auto) (0-100) /uL Sodium 139 (137-145) mmol/L Potassium 4.1 (3.4-5.1) mmol/L Chloride 101 (98-107) mmol/L Carbon Dioxide 27 (22-32) mmol/L BUN 11 (7-17) mg/dL Creatinine 0.57 (0.52-1.04) mg/dL Estimated GFR > 60 (>60) mL/min BUN/Creatinine Ratio 19.3 (6-22) Glucose 99 (70-100) mg/dL Lactate (0.7-2.1) mmol/L Calcium 8.5 (8.4-10.2) mg/dL Total Bilirubin 1.4 H (0.2-1.3) mg/dL AST 367 H (14-36) IU/L ALT 247 H (<35) IU/L Alkaline Phosphatase 101 (38-126) U/L C-Reactive Protein (<1.0) mg/dL Total Protein 7.3 (6.3-8.2) g/dL Albumin 4.2 (3.5-5.0) g/dL Globulin 3.1 (1.7-4.1) g/dL Albumin/Globulin Ratio 1.4 (1.0-2.8) Lipase 50 (23-300) U/L Procalcitonin (<0.5) ng/mL Urine Color Yellow Urine Appearance Sl cloudy Urine pH 7.5 (4.5-8.0) Ur Specific [place] 1.010 (1.000-1.035) Urine Protein Trace H (Negative) Urine Glucose (UA) Negative (Negative) g/dL Urine Ketones Negative (NEGATIVE) Urine Occult Blood Negative (Negative) Urine Nitrate Negative (Negative) Urine Bilirubin Negative (NEGATIVE) Urine Urobilinogen 0.2 (0.2) E.U./dL Ur Leukocyte Esterase Negative (NEGATIVE) Urine RBC None seen (0-5/HPF) Urine WBC 0-1/hpf (0-5/HPF) Ur Squamous Epith Cells 5-10 /hpf H (0-5/HPF) Urine Bacteria Few (2-10) H (None) Ur Culture Indicated? Cult not indicated Imaging Data Chest x-ray: Radiologist's Impression: PROCEDURE:? XR CHEST 2V ? INDICATIONS:? aspiration pneumonia? ? TECHNIQUE:? 2 views of the chest were acquired.? ? COMPARISON:? [facility], , XR CHEST 2V, 10/23/2021, 16:41. ? FINDINGS:? ? Surgical changes and devices:? None.? ? Lungs and pleura:? Lungs are clear.? No pleural effusions or pneumothorax.? ? Mediastinum:? Mediastinal contours are normal.? Heart size is normal.? ? Bones and chest wall:? No suspicious bony abnormalities.? Soft tissues appear unremarkable.? ? IMPRESSION:? No evidence acute pulmonary process. ? ? ? Dictated by: Brendan Morocho M.D. on 04/12/2022 at 18:24 ? ? Approved by: Brendan Morocho M.D. on 04/12/2022 at 18:25 ? CT scan - abdomen/pelvis: Radiologist's Impression: PROCEDURE:? CT ABDOMEN PELVIS W CON ? INDICATIONS:? pancreatitis? noris? epigastric pain, esophageal motil prob ? TECHNIQUE:? After the administration of intravenous contrast, axial sections acquired from the lung bases to the pubic symphysis.? Coronal and sagittal reformats were performed.? For radiation dose reduction, the following was used:? automated exposure control, adjustment of mA and/or kV according to patient size.? ? COMPARISON:? [facility], , US ABDOMEN LIMITED, 04/12/2022, 17:26. ? FINDINGS:? Image quality:? Excellent.? ? Lung bases:? Unremarkable. Heart:? No significant findings. ? ABDOMEN: Liver:? Mild diffuse hepatic steatosis.? Prominent left lobe of the liver.? ? Gallbladder:? Markedly contracted, within normal limits. Biliary ducts:? The extrahepatic duct is dilated, measuring 11 mm.? No intrahepatic biliary ductal dilatation.? No obstructing pancreatic mass.? Pancreas is unremarkable in appearance. .? ? Pancreas:? Unremarkable.? ? Spleen:? Unremarkable.? ? Adrenal Glands:? Unremarkable.? ? Kidneys and Ureters:? Unremarkable.? ? ? Stomach and Bowel:? Stomach, small bowel loops, and colon are unremarkable.? Large right colonic fecal load. Peritoneum:? No abnormal intraperitoneal fluid.? No free air.? ? Ventral Wall: ? No hernias.? Abdominal Nodes:? No retroperitoneal or mesenteric adenopathy by size criteria.? Vessels:? Aorta and inferior vena cava are normal in size.? ? PELVIS: Pelvic Organs:? Unremarkable.? ? Bladder:? Unremarkable.? ? Pelvic Nodes: No enlarged lymph nodes.? Miscellaneous: No hernias are seen. ? ? ? Bones:? Lumbar degenerative change.? Severe canal stenosis at L3-L4.? No lytic or blastic bony lesions.? No compression fractures. ? IMPRESSION:? ? 1. Mild diffuse hepatic steatosis. ? 2. The extrahepatic duct is dilated.? If clinically suspect an obstructing distal common duct stone, consider MRCP. ? 3. Left nephrolithiasis. ? 4. Lumbar degenerative change with severe canal stenosis at L3-L4. ? 5. Large right colonic fecal load.? ? ? Dictated by: Brendan Morocho M.D. on 04/12/2022 at 19:13 ? ? Approved by: Brendan Morocho M.D. on 04/12/2022 at 19:18 ? Abd MRI: Radiologist's Impression: PROCEDURE:? MR ABDOMEN WO CON ? INDICATIONS:? Elevated liver enzymes, cholangitis/choledocolithiasis? ? TECHNIQUE:? Coronal HASTE through the abdomen, axial 2-D FLASH in- and [id number], and breath-hold T2 FSE with fat saturation through the biliary system and pancreas.? Oblique coronal and axial thin-slice HASTE, radial thick-slab HASTE centered on the extrahepatic bile ducts.? ? ? COMPARISON:? [facility], US, US ABDOMEN LIMITED, 04/12/2022, 17:26.? [facility], CT, CT ABDOMEN PELVIS W CON, 04/12/2022, 18:45. ? FINDINGS:? Image quality:? There is mild motion artifact.? ? Pancreas and biliary system:? The gallbladder is nondistended.? No wall thickening or gallstones identified.? There is mild intra and extrahepatic biliary ductal dilatation, with the common bile duct measuring up to approximately 1.1 cm.? No filling defects to suggest choledocholithiasis.? No discrete obstructing mass identified in the absence of intravenous contrast.? No pancreatic duct dilatation.? No peripancreatic edema or fluid collections.? ? Other solid organs:? The liver demonstrates diffuse signal dropout on [id number] imaging consistent with fatty infiltration.? Spleen is normal in size.? No adrenal nodules.? Both kidneys are normal in size, without hydronephrosis.? ? Nodes and vessels:? No retroperitoneal or mesenteric adenopathy by size criteria.? Aorta and inferior vena cava are normal in size.? ? Bowel and peritoneum:? Visualized bowel loops are normal in caliber.? No free fluid.? ? Lung bases:? No basal pleural effusions.? Heart size is normal.? ? Bones and soft tissues:? No ventral hernias.? Bone marrow is of normal overall signal.? ? IMPRESSION:? ? 1. Mild biliary ductal dilatation without evidence of choledocholithiasis.? No discrete obstructing mass identified in the absence of intravenous contrast.? The findings are nonspecific and the differential includes ampullary stenosis, sequelae of cholangitis, or a small nonvisualized mass lesion. Recommend correlation clinically including with laboratory values and if indicated follow-up dedicated contrast enhanced imaging may be performed to evaluate for inflammatory changes or small mass lesions. ? 2. Hepatic steatosis. ? 3. No MRI evidence of acute pancreatitis.? ? Dictated by: Sukhjinder Herrera M.D. on 04/12/2022 at 21:15 ? ? Approved by: Sukhjinder Herrera M.D. on 04/12/2022 at 21:26 ? [facility] Narrative Medical decision making narrative: This is a 36-year-old female presents to the emergency department with concerns about worsening epigastric pain and esophageal GI motility disorder. Patient was recently seen at [facility] and states she had a barium swallow last week ordered by her provider Dr. Brown. Records were sent over but no record of this only an esophageal dilatation from December of 2021. Patient states that this helped improve her symptoms at that time but her symptoms have been worsening over last few days. Patient was given a GI cocktail, Protonix, diazepam, ketorolac, hydromorphone in 1 L of lactated Ringer's and she states that she feels much better. Her labs are significant for elevated liver enzymes, total bilirubin is 1.4, prior from 08/14/2016 is 0.4, AST is 367, compare to 15/10 at most recent, ALT is 247, which is elevated from 30. Patient's CRP is elevated at 2.4. UA shows a trace of protein, epithelial cells and few bacteria, this is most likely contaminant and a culture was not indicated. Her procalcitonin is 0.23, lipase of 50 no significant leukocytosis, WBC is 9.3, hemoglobin of 12.0 and hematocrit of 35.0. No electrolyte abnormalities, creatinine 0.57, lactate is 1.6. H pylori breath test was completed by lab and is pending results. Patient currently takes 40 mg of omeprazole daily and is on a GERD diet for the next 3 months per her GI physician at [facility]. Abdomen pelvis CT shows mild diffuse hepatic steatosis, the extra hepatic duct is dilated with suspicion for obstructive distal duct stone and MRs he is now pending, CT also shows left nephrolithiasis, lumbar degenerative changes with severe canal stenosis at L3-L4, large right colonic fecal load. Differential includes cholecystitis, cholelithiasis, pancreatitis, H pylori, GERD, esophagitis, cholangitis, bowel obstruction, obstructive distal common duct stone, gastritis, achalasia, hiatal hernia, Castano's esophagus. <Patricia Fofana, DO - Last Filed: 04/13/22 06:49> Lab Data Labs: Lab Results 04/12/22 04/12/22 04/12/22 Range/Units 16:33 16:33 16:35 WBC 9.3 (4.5-11.0) X10^3/uL RBC 4.05 (4.0-5.2) X10^6/uL Hgb 12.0 (12.0-16.0) g/dL Hct 35.0 L (36-46) % MCV 86.5 (80-100) fL MCH 29.6 (26-34) PG MCHC 34.2 (30-36) % RDW 13.1 (11.6-14.8) % Plt Count 225 (150-400) X10^3/uL Neut % (Auto) 77.1 H (50-75) % Lymph % (Auto) 13.9 L (25-40) % [place] % (Auto) 4.7 (3-14) % Eos % (Auto) 4.0 (2-4) % Baso % (Auto) 0.3 (0-2) % Neut # (Auto) 7200 H (4173-5278) /uL Lymph # (Auto) 1300 (4253-4222) /uL [place] # (Auto) 400 (0-900) /uL Eos # (Auto) 400 (0-450) /uL Baso # (Auto) 0 (0-100) /uL Sodium (137-145) mmol/L Potassium (3.4-5.1) mmol/L Chloride (98-107) mmol/L Carbon Dioxide (22-32) mmol/L BUN (7-17) mg/dL Creatinine (0.52-1.04) mg/dL Estimated GFR (>60) mL/min BUN/Creatinine Ratio (6-22) Glucose (70-100) mg/dL Lactate 1.6 (0.7-2.1) mmol/L Calcium (8.4-10.2) mg/dL Total Bilirubin (0.2-1.3) mg/dL AST (14-36) IU/L ALT (<35) IU/L Alkaline Phosphatase (38-126) U/L C-Reactive Protein 2.4 H (<1.0) mg/dL Total Protein (6.3-8.2) g/dL Albumin (3.5-5.0) g/dL Globulin (1.7-4.1) g/dL Albumin/Globulin Ratio (1.0-2.8) Lipase (23-300) U/L Procalcitonin 0.23 (<0.5) ng/mL Urine Color Urine Appearance Urine pH (4.5-8.0) Ur Specific [place] (1.000-1.035) Urine Protein (Negative) Urine Glucose (UA) (Negative) g/dL Urine Ketones (NEGATIVE) Urine Occult Blood (Negative) Urine Nitrate (Negative) Urine Bilirubin (NEGATIVE) Urine Urobilinogen (0.2) E.U./dL Ur Leukocyte Esterase (NEGATIVE) Urine RBC (0-5/HPF) Urine WBC (0-5/HPF) Ur Squamous Epith Cells (0-5/HPF) Urine Bacteria (None) Ur Culture Indicated? 04/12/22 04/12/22 Range/Units 16:35 18:00 WBC (4.5-11.0) X10^3/uL RBC (4.0-5.2) X10^6/uL Hgb (12.0-16.0) g/dL Hct (36-46) % MCV (80-100) fL MCH (26-34) PG MCHC (30-36) % RDW (11.6-14.8) % Plt Count (150-400) X10^3/uL Neut % (Auto) (50-75) % Lymph % (Auto) (25-40) % [place] % (Auto) (3-14) % Eos % (Auto) (2-4) % Baso % (Auto) (0-2) % Neut # (Auto) (3958-7275) /uL Lymph # (Auto) (9522-7684) /uL [place] # (Auto) (0-900) /uL Eos # (Auto) (0-450) /uL Baso # (Auto) (0-100) /uL Sodium 139 (137-145) mmol/L Potassium 4.1 (3.4-5.1) mmol/L Chloride 101 (98-107) mmol/L Carbon Dioxide 27 (22-32) mmol/L BUN 11 (7-17) mg/dL Creatinine 0.57 (0.52-1.04) mg/dL Estimated GFR > 60 (>60) mL/min BUN/Creatinine Ratio 19.3 (6-22) Glucose 99 (70-100) mg/dL Lactate (0.7-2.1) mmol/L Calcium 8.5 (8.4-10.2) mg/dL Total Bilirubin 1.4 H (0.2-1.3) mg/dL AST 367 H (14-36) IU/L ALT 247 H (<35) IU/L Alkaline Phosphatase 101 (38-126) U/L C-Reactive Protein (<1.0) mg/dL Total Protein 7.3 (6.3-8.2) g/dL Albumin 4.2 (3.5-5.0) g/dL Globulin 3.1 (1.7-4.1) g/dL Albumin/Globulin Ratio 1.4 (1.0-2.8) Lipase 50 (23-300) U/L Procalcitonin (<0.5) ng/mL Urine Color Yellow Urine Appearance Sl cloudy Urine pH 7.5 (4.5-8.0) Ur Specific [place] 1.010 (1.000-1.035) Urine Protein Trace H (Negative) Urine Glucose (UA) Negative (Negative) g/dL Urine Ketones Negative (NEGATIVE) Urine Occult Blood Negative (Negative) Urine Nitrate Negative (Negative) Urine Bilirubin Negative (NEGATIVE) Urine Urobilinogen 0.2 (0.2) E.U./dL Ur Leukocyte Esterase Negative (NEGATIVE) Urine RBC None seen (0-5/HPF) Urine WBC 0-1/hpf (0-5/HPF) Ur Squamous Epith Cells 5-10 /hpf H (0-5/HPF) Urine Bacteria Few (2-10) H (None) Ur Culture Indicated? Cult not indicated MDM Narrative Medical decision making narrative: This is a 36-year-old female presents to the emergency department with concerns about worsening epigastric pain and esophageal GI motility disorder. Patient was recently [facility] Hospital and states she had a barium swallow last week ordered by her provider Dr. Brown. Records were sent over but no record of this only an esophageal dilatation from December of 2021. Patient states that this helped improve her symptoms at that time but her symptoms have been worsening over last few days. Patient was given a GI cocktail, Protonix, diazepam, ketoro lac, hydromorphone in 1 L of lactated Ringer's and she states that she feels much better. Her labs are significant for elevated liver enzymes, total bilirubin is 1.4, prior from 08/14/2016 is 0.4, AST is 367, compare to 15/10 at most recent, ALT is 247, which is elevated from 30. Patient's CRP is elevated at 2.4. UA shows a trace of protein, epithelial cells and few bacteria, this is most likely contaminant and a culture was not indicated. Her procalcitonin is 0.23, lipase of 50 no significant leukocytosis, WBC is 9.3, hemoglobin of 12.0 and hematocrit of 35.0. No electrolyte abnormalities, creatinine 0.57, lactate is 1.6. H pylori breath test was completed by lab and is pending results. Patient currently takes 40 mg of omeprazole daily and is on a GERD diet for the next 3 months per her GI physician at [facility]. Abdomen pelvis CT shows mild diffuse hepatic steatosis, the extra hepatic duct is dilated with suspicion for obstructive distal duct stone and MRs he is now pending, CT also shows left nephrolithiasis, lumbar degenerative changes with severe canal stenosis at L3-L4, large right colonic fecal load. Differential includes cholecystitis, cholelithiasis, pancreatitis, H pylori, GERD, esophagitis, cholangitis, bowel obstruction, obstructive distal common duct stone, gastritis, achalasia, hiatal hernia, Castano's esophagus. Ct 04/12/22: Patient signed out to myself by nurse practitioner crew patient has had about 3 months of epigastric pain and GI motility issues she is following with Gastroenterology out of [facility]. Patient was seen independently evaluated by myself. She most recently had a barium swallow about 3 weeks ago was found to have some dysmotility of the lower esophagus. Patient states today she had increase in her pain and presents. She is been afebrile she is had nausea but no vomiting, patient has been persistent tachycardic did improve with fluids but not resolved. Patient has elevated liver enzymes but last comparisons her from 2017. Patient had ultrasound, CT and MRCP to evaluate for possible biliary ductal blockage was found to be dilated but no blockage. Please see report. Discussed with patient she is been afebrile she does not wish to stay she states her tachycardia is normal for her and that particularly when she is feeling more anxious and her anxiety meds wear off she asked for 1 additional dose of pain medication and would like to return home and follow-up with her photogravure press operator tomorrow. Patient case was discussed with our general surgeon who did not feel there was anything surgical, discussed with hospitalist about possible observation for medicine but patient defers politely. Discharge Plan Departure Patient Disposition: Home Clinical Impression: Epigastric pain, Elevated liver enzymes, Fatty liver, Lumbar canal stenosis, Left nephrolithiasis, Bile duct, common, cystic dilatation Activity Restrictions/Additional Instructions: Follow-up with your photogravure press operator. Your MRCP was included in the disc please take this to your visit. There was some ductal dilation but no obvious obstruction. You can continue home medications as prescribed Please return for fevers, new or worsening abdominal pain, persistent vomiting, passing out or if you are having worsening symptoms. Prescriptions: No Action hydrocodone-acetaminophen 5-325 mg tablet 1 tab PO Q6HP PRN (Reason: Back Pain) sertraline 50 mg tablet 100 mg PO DAILY olanzapine [Zyprexa] 15 mg tablet 10 mg PO DAILY gabapentin 800 mg tablet PO TID rizatriptan [Maxalt[employer]] 10 mg tablet,disintegrating See Rx Instructions PO .COMPLEX Rx Instructions: take 1 tab at onset of headache; if no relief may repeat 1 tab after at least 2 hrs; max = 3 tabs/24 hr PO omeprazole 40 mg capsule,delayed release(DR/EC) 40 mg PO DAILY Referrals: Winston Ryan MD [Primary Care Provider] - Visit Report Forms: Patient Portal/API
[2022-04-12 17:21] LABS: Lactate (Lactic Acid) 1.6 mmol/L (0.7-2.1)
--- NOTE | 2022-04-12 17:22 | DI.RAD.S_ITS ---
PROCEDURE: XR CHEST 2V INDICATIONS: aspiration pneumonia? TECHNIQUE: 2 views of the chest were acquired. COMPARISON: [facility], CR, XR CHEST 2V, 10/23/2021, 16:41. FINDINGS: Surgical changes and devices: None. Lungs and pleura: Lungs are clear. No pleural effusions or pneumothorax. Mediastinum: Mediastinal contours are normal. Heart size is normal. Bones and chest wall: No suspicious bony abnormalities. Soft tissues appear unremarkable. IMPRESSION: No evidence acute pulmonary process. Dictated by: Brendan Morocho M.D. on 04/12/2022 at 18:24 Approved by: Brendan Morocho M.D. on 04/12/2022 at 18:25
[2022-04-12 17:25] LABS: C-Reactive Protein Quant 2.4 mg/dL (<1.0)
[2022-04-12] MEDS: HYDROMORPHONE 1 MG INJ IV ×2 (17:53→22:14)
[2022-04-12] MEDS: PANTOPRAZOLE 40 MG VIAL IV (17:53)
[2022-04-12] MEDS: diazePAM 10 MG/2 ML SYRINGE 5 MG IV (17:54)
[2022-04-12] MEDS: KETOROLAC 30 MG/ML VIAL 15 MG IV (17:55)
[2022-04-12] MEDS: MAG HYDROX/ALUMINUM/SIMETH SUS 20 ML, LIDOCAINE VISCOUS 2% 15 ML PO (17:56)
[2022-04-12] MEDS: LACTATED RINGERS 1,000 ML 1000 ML IV (18:01)
[2022-04-12 18:18] LABS: Appearance Urine UA SL CLOUDY; Bilirubin Urine UA NEGATIVE (NEGATIVE); Color Urine UA YELLOW; Glucose Urine UA NEGATIVE (Negative); Ketones Urine UA NEGATIVE (NEGATIVE); Leukocyte Esterase Urine UA NEGATIVE (NEGATIVE); Nitrite Urine UA NEGATIVE (Negative); Occult Blood Urine UA NEGATIVE (Negative); Protein Urine UA TRACE (Negative); Urobilinogen Urine UA 0.2 E.U./dL (0.2)
--- NOTE | 2022-04-12 18:19 | DI.CT.S_ITS ---
PROCEDURE: CT ABDOMEN PELVIS W CON INDICATIONS: pancreatitis? noris? epigastric pain, esophageal motil prob TECHNIQUE: After the administration of intravenous contrast, axial sections acquired from the lung bases to the pubic symphysis. Coronal and sagittal reformats were performed. For radiation dose reduction, the following was used: automated exposure control, adjustment of mA and/or kV according to patient size. COMPARISON: , , ABDOMEN LIMITED, 04/12/2022, 17:26. FINDINGS: Image quality: Excellent. Lung bases: Unremarkable. Heart: No significant findings. ABDOMEN: Liver: Mild diffuse hepatic steatosis. Prominent left lobe of the liver. Gallbladder: Markedly contracted, within normal limits. Biliary ducts: The extrahepatic duct is dilated, measuring 11 mm. No intrahepatic biliary ductal dilatation. No obstructing pancreatic mass. Pancreas is unremarkable in appearance. . Pancreas: Unremarkable. Spleen: Unremarkable. Adrenal Glands: Unremarkable. Kidneys and Ureters: Unremarkable. Stomach and Bowel: Stomach, small bowel loops, and colon are unremarkable. Large right colonic fecal load. Peritoneum: No abnormal intraperitoneal fluid. No free air. Ventral Wall: No hernias. Abdominal Nodes: No retroperitoneal or mesenteric adenopathy by size criteria. Vessels: Aorta and inferior vena cava are normal in size. PELVIS: Pelvic Organs: Unremarkable. Bladder: Unremarkable. Pelvic Nodes: No enlarged lymph nodes. Miscellaneous: No hernias are seen. Bones: Lumbar degenerative change. Severe canal stenosis at L3-L4. No lytic or blastic bony lesions. No compression fractures. IMPRESSION: 1. Mild diffuse hepatic steatosis. 2. The extrahepatic duct is dilated. If clinically suspect an obstructing distal common duct stone, consider MRCP. 3. Left nephrolithiasis. 4. Lumbar degenerative change with severe canal stenosis at L3-L4. 5. Large right colonic fecal load. Dictated by: Brendan Morocho M.D. on 04/12/2022 at 19:13 Approved by: Brendan Morocho M.D. on 04/12/2022 at 19:18
[2022-04-12 18:27] LABS: pH Urine UA 7.5 (4.5-8.0)
[2022-04-12 18:28] LABS: Bacteria Urine Few (2-10); Culture Indicated Urine Cult Not Indicated; RBC Urine None Seen (0-5/HPF); Squamous Epithelial Cell Urine 5-10 /HPF (0-5/HPF); WBC Urine 0-1/HPF (0-5/HPF)
--- NOTE | 2022-04-12 19:24 | DI.MRI.S_ITS ---
PROCEDURE: MR ABDOMEN WO CON INDICATIONS: Elevated liver enzymes, cholangitis/choledocolithiasis? TECHNIQUE: Coronal HASTE through the abdomen, axial 2-D FLASH in- and [id number], and breath-hold T2 FSE with fat saturation through the biliary system and pancreas. Oblique coronal and axial thin-slice HASTE, radial thick-slab HASTE centered on the extrahepatic bile ducts. COMPARISON: [facility], US, US ABDOMEN LIMITED, 04/12/2022, 17:26. [facility], CT, CT ABDOMEN PELVIS W CON, 04/12/2022, 18:45. FINDINGS: Image quality: There is mild motion artifact. Pancreas and biliary system: The gallbladder is nondistended. No wall thickening or gallstones identified. There is mild intra and extrahepatic biliary ductal dilatation, with the common bile duct measuring up to approximately 1.1 cm. No filling defects to suggest choledocholithiasis. No discrete obstructing mass identified in the absence of intravenous contrast. No pancreatic duct dilatation. No peripancreatic edema or fluid collections. Other solid organs: The liver demonstrates diffuse signal dropout on [id number] imaging consistent with fatty infiltration. Spleen is normal in size. No adrenal nodules. Both kidneys are normal in size, without hydronephrosis. Nodes and vessels: No retroperitoneal or mesenteric adenopathy by size criteria. Aorta and inferior vena cava are normal in size. Bowel and peritoneum: Visualized bowel loops are normal in caliber. No free fluid. Lung bases: No basal pleural effusions. Heart size is normal. Bones and soft tissues: No ventral hernias. Bone marrow is of normal overall signal. IMPRESSION: 1. Mild biliary ductal dilatation without evidence of choledocholithiasis. No discrete obstructing mass identified in the absence of intravenous contrast. The findings are nonspecific and the differential includes ampullary stenosis, sequelae of cholangitis, or a small nonvisualized mass lesion. Recommend correlation clinically including with laboratory values and if indicated follow-up dedicated contrast enhanced imaging may be performed to evaluate for inflammatory changes or small mass lesions. 2. Hepatic steatosis. 3. No MRI evidence of acute pancreatitis. Dictated by: Sukhjinder Herrera M.D. on 04/12/2022 at 21:15 Approved by: Sukhjinder Herrera M.D. on 04/12/2022 at 21:26
[2022-04-12 19:34] LABS: Procalcitonin 0.23 ng/mL (<0.5)
[2022-04-16 07:17] LABS: Interpretation Negative (Negative)
== END 2022-04-12 22:25 | disposition home or self-care (01) ==
PROVIDERS: Emergency Medicine; Emergency Provider Nurse Practitioner Critical Care Medicine; Family Provider Family Medicine; PCP Family Medicine
DX: R10.13 Epigastric pain (principal); R74.8 Abnormal levels of other serum enzymes; K76.0 Fatty (change of) liver, not elsewhere classified; M48.061 Spinal stenosis, lumbar region without neurogenic claudication; N20.0 Calculus of kidney; Q44.5 Other congenital malformations of bile ducts; R00.0 Tachycardia, unspecified
CPT/HCPCS: 36415; 71046; 74177; 74181; 76705; 80053; 81001; 83013; 83605; 83690; 84145; 85025; 86140; 93005; 96361; 96374; 96375; 96376; 99285; C9113; J1170; J1885; J3360; Q9967

== ENCOUNTER → 2022-11-16 14:58 | Outpatient (CLI) | payer OTHER, MEDICAID, SELFPAY ==
--- NOTE | 2022-11-16 15:04 | DI.RAD.S_ITS ---
PROCEDURE: XR CLAVICLE RT INDICATIONS: INJURY FROM FALL TECHNIQUE: 2 views of the clavicle were acquired. COMPARISON: [facility], CR, XR CHEST 2V, 04/12/2022, 17:44. FINDINGS: Bones: No fractures or dislocations. No suspicious bony lesions. Degenerative changes of the acromioclavicular joint. Coracoclavicular and acromioclavicular intervals are maintained. Soft tissues: No suspicious soft tissue calcifications. IMPRESSION: Right clavicle without fracture or dislocation. Acromioclavicular and coracoclavicular intervals are preserved. Dictated by: Nain Baron M.D. on 11/16/2022 at 16:36 Approved by: Nain Baron M.D. on 11/16/2022 at 16:38
== END ==
PROVIDERS: Family Provider Family Medicine; PCP Family Medicine; Referring Provider Family Medicine; Visit Provider Family Medicine
DX: M54.2 Cervicalgia (principal)
CPT/HCPCS: 73000

== ENCOUNTER 2023-01-22 11:42 | Emergency (ER) | payer OTHER, MEDICAID, SELFPAY ==
[2023-01-22 11:45] VITALS: BP 179/116; PULSE 104; RESP 16; TEMP 36.3; O2SAT 98; BMI 47.9
[2023-01-22] MEDS: CYCLOBENZAPRINE 10 MG TABLET PO (12:19)
[2023-01-22] MEDS: KETOROLAC 30 MG/ML VIAL IM (12:19)
--- NOTE | 2023-01-22 12:36 | DI.RAD.S_ITS ---
PROCEDURE: XR CERVICAL SPINE 2V OR 3V INDICATIONS: neck pain TECHNIQUE: 3 view(s) of the cervical spine were acquired. COMPARISON: [facility], CR, XR CLAVICLE RT, 11/16/2022, 15:07. [facility], CR, XR CERVICAL SPINE 4V OR 5V, 10/23/2021, 16:34. FINDINGS: Bones: Straightening of normal cervical lordosis. Moderate degenerative changes. There are osteophytes, disc space narrowing, and arthropathy. No traumatic subluxation. No acute vertebral body height loss. Soft tissues: No pathologic prevertebral soft tissue swelling. C1 on C2 alignment is within normal limits on odontoid view. IMPRESSION: Moderate degenerative changes. If there is high concern for further derangement, consider MRI evaluation. No acute radiographic abnormality. Dictated by: Ty Nixon M.D. on 01/22/2023 at 14:06 Approved by: Ty Nixon M.D. on 01/22/2023 at 14:08
--- NOTE | 2023-01-22 12:51 | ED.NECK ---
HPI - Neck Pain/Injury <Bharat Ellison PA-C - Last Filed: 01/22/23 14:19> General Chief Complaint: Neck Pain/Injury Stated Complaint: pain in Larm pain in neck T-5 Time Seen by Provider: 01/22/23 11:56 Mode of arrival: Ambulatory History of Present Illness HPI Narrative: 37-year-old female with past medical history cervical radiculopathy, lumbosacral radiculopathy, ADHD presents to the ED with 4 days of neck pain radiating down the left arm. Patient denies numbness, tingling, weakness. Patient denies trauma. Patient does endorse that she has balance problems and falls often. Patient sees Dr. De for pain management. Patient denies chest pain, shortness of breath, nausea, vomiting. Patient states that she took her Vicodin this morning with little relief. Related Data Home Medications Medication Instructions Recorded Confirmed gabapentin 800 mg tablet mg PO TID 08/08/20 10/31/21 sertraline 50 mg tablet 100 mg PO DAILY 08/08/20 10/31/21 hydrocodone 5 mg-acetaminophen 325 1 tab PO Q6HP PRN Back Pain 04/24/21 10/31/21 mg tablet olanzapine 15 mg tablet (Zyprexa) 10 mg PO DAILY 04/24/21 10/31/21 rizatriptan 10 mg disintegrating See Rx Instructions PO .COMPLEX 10/04/21 10/31/21 tablet (Maxalt[employer]) omeprazole 40 mg capsule,delayed 40 mg PO DAILY 10/31/21 10/31/21 release Allergies Allergy/AdvReac Type Severity Reaction Status Date / Time Penicillins [PENICILLINS] Allergy Intermediate RASH Verified 01/22/23 11:45 Sulfa (Sulfonamide Allergy Intermediate RASH Verified 01/22/23 11:45 Antibiotics) [SULFA (SULFONAMIDE ANTIBIOTICS)] Review of Systems <Bharat Ellison PA-C - Last Filed: 01/22/23 14:19> Review of Systems ROS Unobtainable: All systems reviewed & are unremarkable except as noted in HPI and below Constitutional Constitutional: Denies chills, Denies fatigue, Denies fever(s), Denies frequent falls, Denies lethargy and Denies weakness Eyes Eyes: Denies change in vision, Denies eye discharge, Denies irritation and Denies loss of vision ENT Ears, Nose, Mouth, and Throat: Denies change in voice, Denies dizziness, Reports neck pain, Denies sore throat and Denies throat swelling Cardiovascular Cardiovascular: Denies chest pain, Denies irregular heart rhythm, Denies lightheadedness, Denies palpitations, Denies dyspnea, Denies dyspnea on exertion and Denies orthopnea Respiratory Respiratory: Denies cough, Denies dyspnea, Denies dyspnea on exertion and Denies wheezing Gastrointestinal Gastrointestinal: Denies abdominal pain, Denies change in bowel habits, Denies diarrhea, Denies nausea and Denies vomiting Genitourinary Genitourinary: Denies hematuria, Denies flank pain, Denies urinary incontinence and Denies urinary urgency Musculoskeletal Musculoskeletal: Denies back pain, Denies muscle weakness, Reports neck pain, Denies numbness, Reports radiating pain into limb and Denies tingling Integumentary/Breasts Skin/Breast: Denies pruritus, Denies erythema, Denies rash and Denies wounds Neurologic Neurologic: Denies behavioral changes, Denies confusion, Denies dizziness, Denies frequent falls, Denies loss of vision, Denies numbness, Denies tingling and Denies weakness Psychiatric Psychiatric: Denies anxiety, Denies behavioral changes, Denies confusion, Denies depression, Denies homicidal ideation and Denies suicidal ideation Endocrine Endocrine: Denies fatigue, Denies flushing and Denies palpitations Hematologic/Lymphatic Hematologic/Lymphatic: Denies easy bruising Allergic/Immunologic Allergic/Immunologic: Denies urticaria, Denies throat swelling and Denies wheezing Patient History <Bharat Ellison PA-C - Last Filed: 01/22/23 14:19> Medical History Cervical radiculopathy Morbid obesity due to excess calories Social History Smoking Status: Former smoker Smoking Status: Former smoker tobacco type: cigarettes alcohol intake frequency: holidays/special occasions only Substance Use Type: marijuana Exam <Bharat Ellison PA-C - Last Filed: 01/22/23 14:19> Narrative Exam Narrative: Const General:?cooperative, healthy appearing and comfortable HENTX Head:?normal to inspection Ears:?hearing grossly normal bilaterally Nose:?external nose normal Face and sinus:?normal facial exam and sinuses nontender Mouth:?oral mucosae normal Throat:?posterior oropharynx normal Eyes General:?appearance normal, both eyes and all related structures Neck Neck:?normal visual inspection and no lymphadenopathy noted Resp Effort & Inspection:?normal respiratory effort Auscultation:?clear to auscultation bilaterally Cardio Rate:?regular rate Rhythm:?regular rhythm Musculoskeletal No midline tenderness to palpation. There is no paraspinal tenderness to palpation. There is full range of motion of the neck. Range of motion of left arm is limited by pain. Strength and sensation is intact. Patient is neurovascularly intact. Neuro General:?patient alert, patient awake and patient oriented x3 Initial Vital Signs Initial Vital Signs: Vital Signs Temperature 97.3 F L 01/22/23 11:45 Pulse Rate 104 H 01/22/23 11:45 Respiratory Rate 16 01/22/23 11:45 Blood Pressure 179/116 H 01/22/23 11:45 Pulse Oximetry 98 01/22/23 11:45 Oxygen Delivery Method Room Air 01/22/23 11:45 <Hermelinda Fitch DO - Last Filed: 01/24/23 07:42> Initial Vital Signs Initial Vital Signs: Vital Signs Temperature 97.3 F L 01/22/23 11:45 Pulse Rate 104 H 01/22/23 11:45 Respiratory Rate 16 01/22/23 11:45 Blood Pressure 179/116 H 01/22/23 11:45 Pulse Oximetry 98 01/22/23 11:45 Oxygen Delivery Method Room Air 01/22/23 11:45 Course <Bharat Ellison PA-C - Last Filed: 01/22/23 14:19> Orders Ordered: Discontinued Medications Cyclobenzaprine HCl (Cyclobenzaprine 10 Mg Tablet) 10 mg PO NOW ONE Stop: 01/22/23 12:11 Last Admin: 01/22/23 12:19 Dose: 10 mg Documented By: MARVA Ketorolac Tromethamine (Ketorolac 30 Mg/Ml Vial) 30 mg IM NOW ONE Stop: 01/22/23 12:11 Last Admin: 01/22/23 12:19 Dose: 30 mg Documented By: MARVA Vital Signs Vital signs: Vital Signs - 8 hr 01/22/23 11:45 01/22/23 14:04 Temperature 97.3 F L Pulse Rate 104 H 116 H Respiratory Rate 16 Blood Pressure 179/116 H 143/109 H Pulse Oximetry 98 96 Oxygen Delivery Method Room Air Room Air <Hermelinda Fitch DO - Last Filed: 01/24/23 07:42> Orders Ordered: Discontinued Medications Cyclobenzaprine HCl (Cyclobenzaprine 10 Mg Tablet) 10 mg PO NOW ONE Stop: 01/22/23 12:11 Last Admin: 01/22/23 12:19 Dose: 10 mg Documented By: MARVA Ketorolac Tromethamine (Ketorolac 30 Mg/Ml Vial) 30 mg IM NOW ONE Stop: 01/22/23 12:11 Last Admin: 01/22/23 12:19 Dose: 30 mg Documented By: MARVA Vital Signs Vital signs: Vital Signs - 8 hr 01/22/23 11:45 01/22/23 14:04 Temperature 97.3 F L Pulse Rate 104 H 116 H Respiratory Rate 16 Blood Pressure 179/116 H 143/109 H Pulse Oximetry 98 96 Oxygen Delivery Method Room Air Room Air MDM - Neck Pain/Injury <Bharat Ellison PA-C - Last Filed: 01/22/23 14:19> Lab Data Labs: Point of Care Testing Test Results Negative Urine Dip Bedside Urine Glucose Negative Bedside Urine Bilirubin - Negative Bedside Urine Ketone - Negative Urine Specific [place] 1.010 Bedside Urine Occult Blood - Negative Bedside Urine pH 7.0 Bedside Urine Protein - Negative Bedside Urine Urobilinogen - Negative Bedside Urine Nitrite - Negative Bedside Urine Leukocytes - Negative Esterase MDM Narrative Medical decision making narrative: 37-year-old female with past medical history cervical radiculopathy, lumbosacral radiculopathy, ADHD presents to the ED with 4 days of neck pain radiating down the left arm. Concern for cervical radiculopathy versus fracture/dislocation versus musculoskeletal sprain/strain versus other. Will obtain x-ray. Will give Flexeril and Toradol for pain. Will reassess. Chest x-ray without new acute findings. Patient's symptoms likely due to cervical radiculopathy versus musculoskeletal sprain/strain. Patient sees Dr. De for pain management. Recommend follow-up with Dr. De as soon as possible for further evaluation and treatment. Recommend continued use of indomethacin and Flexeril along with lidocaine patches and heat packs. ED return precautions were discussed with patient. Patient verbalizes understanding. Medical records reviewed: Yes <Hermelinda Fitch DO - Last Filed: 01/24/23 07:42> Lab Data Labs: Point of Care Testing Test Results Negative Urine Dip Bedside Urine Glucose Negative Bedside Urine Bilirubin - Negative Bedside Urine Ketone - Negative Urine Specific [place] 1.010 Bedside Urine Occult Blood - Negative Bedside Urine pH 7.0 Bedside Urine Protein - Negative Bedside Urine Urobilinogen - Negative Bedside Urine Nitrite - Negative Bedside Urine Leukocytes - Negative Esterase Discharge Plan Departure Patient Disposition: Home Clinical Impression: Neck pain Instructions: DI for Neck Pain Activity Restrictions/Additional Instructions: You were evaluated in the ED today for neck pain. Your x-ray did not show any fractures or dislocations. It appears that your symptoms are due to a exacerbation of your cervical radiculopathy or a musculoskeletal sprain/strain. You were given Toradol and Flexeril in the ED today. You may continue taking Flexeril at home. Please follow-up with Dr. De for further evaluation and treatment. Return to the ED if you experience any numbness, tingling, weakness. Prescriptions: No Action hydrocodone-acetaminophen 5-325 mg tablet 1 tab PO Q6HP PRN (Reason: Back Pain) sertraline 50 mg tablet 100 mg PO DAILY olanzapine [Zyprexa] 15 mg tablet 10 mg PO DAILY gabapentin 800 mg tablet PO TID rizatriptan [Maxalt-[employer]] 10 mg tablet,disintegrating See Rx Instructions PO .COMPLEX Rx Instructions: take 1 tab at onset of headache; if no relief may repeat 1 tab after at least 2 hrs; max = 3 tabs/24 hr PO omeprazole 40 mg capsule,delayed release(DR/EC) 40 mg PO DAILY Referrals: Winston Ryan MD [Primary Care Provider] - Stand Alone Forms: Patient Portal/API <Hermelnida Fitch DO - Last Filed: 01/24/23 07:42> Cosign ED Attending Cosignature Attestation: I was immediately available in the department for consultation. Documentation has been reviewed.
[2023-01-22 14:04] VITALS: BP 143/109; PULSE 116; O2SAT 96
== END 2023-01-22 14:20 | disposition home or self-care (01) ==
PROVIDERS: Emergency Provider Student in an Organized Health Care Education/Training Program; Family Provider Family Medicine; PCP Family Medicine
DX: M54.2 Cervicalgia (principal)
CPT/HCPCS: 72040; 81003; 81025; 96372; 99283; 99284; J1885

== ENCOUNTER 2023-06-18 14:59 | Emergency (ER) | payer OTHER, MEDICAID, SELFPAY ==
[2023-06-18 15:28] VITALS: BP 184/101; PULSE 109; RESP 16; TEMP 37; O2SAT 98; BMI 47.7
== END 2023-06-18 15:36 | disposition left against medical advice (07) ==
PROVIDERS: Emergency Provider Emergency Medicine; Family Provider Family Medicine; PCP Family Medicine
DX: R07.9 Chest pain, unspecified (principal)
CPT/HCPCS: 99281

== ENCOUNTER → 2024-05-25 14:35 | Outpatient (CLI) | payer OTHER, MEDICAID, SELFPAY | PROVIDERS: Family Provider Family Medicine; PCP Family Medicine; Referring Provider Family Medicine; Visit Provider Family Medicine | DX: R55 Syncope and collapse (principal) | CPT/HCPCS: 93246; 93248 ==

== ENCOUNTER 2024-08-04 14:55 | Emergency (ER) | payer OTHER, SELFPAY ==
[2024-08-04] VITALS (14 sets, daily range): BP systolic 107–198; BP diastolic 56–89; PULSE 106–116; RESP 12–18; TEMP 36.7; O2SAT 93–98; BMI 48.1
--- NOTE | 2024-08-04 16:47 | EKG_ITS ---
[address] [address] Test Date: 2024-08-04 Pat Name: Edith Gerber Department: [facility] Room: Gender: Female Program Professional: FAN : 1985 Requested By: Order Number: [id number] Reading MD: Jorge Roman MD Measurements Intervals [place] Rate: 109 P: 55 WV: 152 QRS: 9 QRSD: 74 T: 26 QT: 340 QTc: 457 Interpretive Statements Sinus tachycardia Cannot rule out Inferior infarct , age undetermined Cannot rule out Anterior infarct , age undetermined Electronically Signed On 08-05-2024 6:40:29 PST by Jorge Roman MD
[2024-08-04 17:07] LABS: Add Manual Diff / Slide Review NO; Basophils Absolute Auto 100 /uL (0-100); Basophils Percent Auto 0.6 % (0-2); Eosinophils Absolute Auto 100 /uL (0-450); Eosinophils Percent Auto 0.5 % (2-4); Hematocrit 38.1 % (36-46); Hemoglobin 12.8 g/dL (12.0-16.0); Lymphocytes Absolute Auto 3100 /uL (1100-4500); Lymphocytes Percent Auto 30.5 % (25-40); Mean Corpuscular HGB Conc 33.6 % (30-36); Mean Corpuscular Hemoglobin 29.2 PG (26-34); Monocytes Absolute Auto 400 /uL (0-900); Monocytes Percent Auto 3.5 % (3-14); Neutrophils Absolute Auto 6600 /uL (1500-7000); Neutrophils Percent Auto 64.9 % (50-75); Platelet Count 306 X10^3/uL (150-400); Red Blood Cell Count 4.38 X10^6/uL (4.0-5.2); Red Cell Distribution Width 13.2 % (11.6-14.8); White Blood Cell Count 10.1 X10^3/uL (4.5-11.0)
[2024-08-04 17:09] LABS: Alanine Aminotransferase 53 IU/L (<35); Albumin 4.6 g/dL (3.5-5.0); Albumin Globulin Ratio 1.7 (1.0-2.8); Alkaline Phosphatase 72 U/L (38-126); Aspartate Aminotransferase 41 IU/L (14-36); BUN Creatinine Ratio 19.3 (6-22); Bilirubin Total 0.4 mg/dL (0.2-1.3); Blood Urea Nitrogen 11 mg/dL (7-17); Calcium 8.8 mg/dL (8.4-10.2); Carbon Dioxide 25 mmol/L (22-32); Chloride 103 mmol/L (98-107); Estimated Glomerular Filt Rate > 60 mL/min (>60); Globulin 2.7 g/dL (1.7-4.1); Glucose 109 mg/dL (70-100); HEMOLYSIS < 15 (0-50); Lipase 56 U/L (23-300); Potassium 3.9 mmol/L (3.4-5.1); Sodium 138 mmol/L (137-145); Total Protein 7.3 g/dL (6.3-8.2)
--- NOTE | 2024-08-04 18:01 | DI.US.S_ITS ---
PROCEDURE: US ABDOMEN LIMITED INDICATIONS: RUQ PAIN X 2 WKS TECHNIQUE: Real-time scanning was performed of the abdominal and retroperitoneal organs, with image documentation. COMPARISON: [facility], US, US ABDOMEN LIMITED, 04/12/2022, 17:26. FINDINGS: Exam is limited secondary to body habitus. Liver: Liver is poorly visualized. There is increased hepatic echogenicity. Gallbladder: No gross abnormalities visualized. No cholelithiasis or wall thickening. Biliary ducts: Intrahepatic bile ducts are non-dilated. Extrahepatic bile duct caliber measures 7 mm. Normal is 6-7 mm or less in diameter, or 10 mm or less post-cholecystectomy. Pancreas: Not well visualized. Miscellaneous: No free abdominal fluid. IMPRESSION: Suboptimal views of the liver and gallbladder. Increased hepatic echogenicity visualized likely reflecting hepatic echogenicity. Recommend clinical correlation. Poorly visualized gallbladder without cholelithiasis or sonographic evidence of acute cholecystitis. Note: Concordant preliminary findings given to ordering ED provider by die attacher at time of imaging completion. Approved by: Tia Alejandra M.D.,Ph.D. on 08/04/2024 at 20:19
--- NOTE | 2024-08-04 18:13 | ED_ITS ---
HPI - Abdominal Pain General Chief Complaint: Abdominal Pain Stated Complaint: abd px, nausea, vomiting Time Seen by Provider: 08/04/24 17:51 Source: patient Mode of arrival: Ambulatory History of Present Illness HPI narrative: 39-year-old female with history of chronic back pain, ADHD, morbid obesity presents by private vehicle with her caregiver for intermittent right-sided abdominal pain/back pain. Worse with eating, associated with nausea and vomiting. Followed by Dr. Ryan for primary care. He ordered an ultrasound later this week, however over the last 2 days the patient's pain has worsened and so she came to the ER for evaluation. Denies history of intra-abdominal surgeries. Related Data Home Medications Medication Instructions Recorded Confirmed gabapentin 800 mg tablet mg PO TID 08/08/20 10/31/21 sertraline 50 mg tablet 100 mg PO DAILY 08/08/20 10/31/21 hydrocodone 5 mg-acetaminophen 325 1 tab PO Q6HP PRN Back Pain 04/24/21 10/31/21 mg tablet olanzapine 15 mg tablet (Zyprexa) 10 mg PO DAILY 04/24/21 10/31/21 rizatriptan 10 mg disintegrating See Rx Instructions PO .COMPLEX 10/04/21 10/31/21 tablet (Maxalt-CRACKER DOUGH MIXER) omeprazole 40 mg capsule,delayed 40 mg PO DAILY 10/31/21 10/31/21 release Previous Rx's Medication Instructions Recorded dicyclomine 20 mg tablet 20 mg PO TID #30 tabs 08/04/24 sucralfate 1 gram tablet (Carafate) 1 g PO QAC #30 tabs 08/04/24 Allergies Allergy/AdvReac Type Severity Reaction Status Date / Time Penicillins [PENICILLINS] Allergy Intermediate RASH Verified 01/22/23 11:45 Sulfa (Sulfonamide Allergy Intermediate RASH Verified 01/22/23 11:45 Antibiotics) [SULFA (SULFONAMIDE ANTIBIOTICS)] Patient History Medical History Cervical radiculopathy Morbid obesity due to excess calories Social History Smoking Status: Current every day smoker Smoking Status: Current every day smoker tobacco type: vaping alcohol intake frequency: holidays/special occasions only Exam Initial Vital Signs Initial Vital Signs: Vital Signs Temperature 98.1 F 08/04/24 15:24 Pulse Rate 115 H 08/04/24 15:24 Respiratory Rate 18 08/04/24 15:24 Blood Pressure 129/89 08/04/24 15:24 Pulse Oximetry 98 08/04/24 15:24 Oxygen Delivery Method Room Air 08/04/24 15:24 Const: Awake, alert, headphones on, playing with [employer] switch Cardiac: regular rate, regular rhythm RESP: unlabored, clear bilaterally, no wheezing GI: Soft, minimal right upper quadrant tenderness to deep palpation, negative Mcmanus's sign MSK: Atraumatic, full range of motion, pulses equal Skin: Warm, Dry, intact, no rashes Neuro: AO x3, CN II-XII grossly intact, moves all extremities Course Orders Ordered: Discontinued Medications Ondansetron HCl (Ondansetron 4 Mg/2 Ml Inj) 4 mg IV NOW PRN PRN Reason: Nausea And Vomiting Ondansetron HCl (Ondansetron 4 Mg Odt) 4 mg PO NOW PRN PRN Reason: Nausea And Vomiting Vital Signs Vital signs: Vital Signs - 8 hr 08/04/24 19:30 08/04/24 19:31 08/04/24 19:31 Pulse Rate 106 H 107 H Respiratory Rate 13 15 Blood Pressure 110/56 L Pulse Oximetry 93 94 08/04/24 20:00 08/04/24 20:00 Pulse Rate 109 H Respiratory Rate 16 Blood Pressure 107/62 Pulse Oximetry MDM - Abdominal Pain Differential Diagnosis Differential diagnosis: Likely abdominal pain and other (cholelithiasis, cholecystitis) Lab Data 08/04/24 16:30 08/04/24 16:30 Labs: Lab Results 08/04/24 Range/Units 16:30 WBC 10.1 (4.5-11.0) X10^3/uL RBC 4.38 (4.0-5.2) X10^6/uL Hgb 12.8 (12.0-16.0) g/dL Hct 38.1 (36-46) % MCV 87.0 (80-100) fL MCH 29.2 (26-34) PG MCHC 33.6 (30-36) % RDW 13.2 (11.6-14.8) % Plt Count 306 (150-400) X10^3/uL Neut % (Auto) 64.9 (50-75) % Lymph % (Auto) 30.5 (25-40) % [place] % (Auto) 3.5 (3-14) % Eos % (Auto) 0.5 L (2-4) % Baso % (Auto) 0.6 (0-2) % Neut # (Auto) 6600 (5699-6876) /uL Lymph # (Auto) 3100 (7805-4172) /uL [place] # (Auto) 400 (0-900) /uL Eos # (Auto) 100 (0-450) /uL Baso # (Auto) 100 (0-100) /uL Sodium 138 (137-145) mmol/L Potassium 3.9 (3.4-5.1) mmol/L Chloride 103 (98-107) mmol/L Carbon Dioxide 25 (22-32) mmol/L BUN 11 (7-17) mg/dL Creatinine 0.57 (0.52-1.04) mg/dL Estimated GFR > 60 (>60) mL/min BUN/Creatinine Ratio 19.3 (6-22) Glucose 109 H (70-100) mg/dL Calcium 8.8 (8.4-10.2) mg/dL Total Bilirubin 0.4 (0.2-1.3) mg/dL AST 41 H (14-36) IU/L ALT 53 H (<35) IU/L Alkaline Phosphatase 72 (38-126) U/L Total Protein 7.3 (6.3-8.2) g/dL Albumin 4.6 (3.5-5.0) g/dL Globulin 2.7 (1.7-4.1) g/dL Albumin/Globulin Ratio 1.7 (1.0-2.8) Lipase 56 (23-300) U/L Point of care testing: Point of Care Testing Test Results Negative Urine Dip Bedside Urine Glucose Negative Bedside Urine Bilirubin - Negative Bedside Urine Ketone - Negative Urine Specific [place] 1.015 Bedside Urine Occult Blood +++ Bedside Urine pH 7.0 Bedside Urine Protein +/- 15 Bedside Urine Urobilinogen - Negative Bedside Urine Nitrite - Negative Bedside Urine Leukocytes +/- 15 Esterase Imaging Data US - abdomen: Radiologist's Impression: PROCEDURE: US ABDOMEN LIMITED INDICATIONS: RUQ PAIN X 2 WKS TECHNIQUE: Real-time scanning was performed of the abdominal and retroperitoneal organs, with image documentation. COMPARISON: [facility], [place], US ABDOMEN LIMITED, 04/12/2022, 17:26. FINDINGS: Exam is limited secondary to body habitus. Liver: Liver is poorly visualized. There is increased hepatic echogenicity. Gallbladder: No gross abnormalities visualized. No cholelithiasis or wall thickening. Biliary ducts: Intrahepatic bile ducts are non-dilated. Extrahepatic bile duct caliber measures 7 mm. Normal is 6-7 mm or less in diameter, or 10 mm or less post-cholecystectomy. Pancreas: Not well visualized. Miscellaneous: No free abdominal fluid. IMPRESSION: Suboptimal views of the liver and gallbladder. Increased hepatic echogenicity visualized likely reflecting hepatic echogenicity. Recommend clinical correlation. Poorly visualized gallbladder without cholelithiasis or sonographic evidence of acute cholecystitis. Note: Concordant preliminary findings given to ordering ED provider by highway painter helper at time of imaging completion. Approved by: Tia Alejandra M.D.,Ph.D. on 08/04/2024 at 20:19 MDM Narrative Medical decision making narrative: Well-appearing patient with several weeks of right-sided abdominal pain. On exam patient was resting comfortably in ED bed, playing on an tennis switch, in no acute distress. Abdomen soft, there is generalized tenderness to deep palpation in the right upper quadrant without rebound or guarding, negative Mcmanus's sign. Laboratory work shows WBC count 10.1, hemoglobin 12.8, platelet count 306, neutrophil percentage 64, sodium 138, potassium 3.9, creatinine 0.57, T bili 0.4, AST 41, ALT 53, alk phos 72. Ultrasound negative for signs of cholecystitis. Patient reassessed, resting comfortably in bed, requesting to leave. Patient informed of lab and imaging findings. Recommended continued PCP follow up. Patient states that she has an appointment later this week with her primary care doctor. Bentyl and Carafate sent to pharmacy of choice. ED return precautions discussed at bedside. Discharge Plan Departure Patient Disposition: Home Clinical Impression: Abdominal pain, Fatty liver Instructions: DI for Abdominal Pain-Adult Activity Restrictions/Additional Instructions: Your laboratory work and ultrasound imaging do not show any signs of gallbladder infection or stones. I do not know the cause of your chronic abdominal pain. You do have a fatty liver, which should be followed by your primary care doctor. Uncontrolled fatty liver can lead to liver disease in the future. Keep following up with your primary care doctor if you continued to have abdominal pains. Prescriptions: New dicyclomine 20 mg tablet 20 mg PO TID Qty: 30 0RF sucralfate [Carafate] 1 gram tablet 1 g PO QAC Qty: 30 0RF No Action hydrocodone-acetaminophen 5-325 mg tablet 1 tab PO Q6HP PRN (Reason: Back Pain) sertraline 50 mg tablet 100 mg PO DAILY olanzapine [Zyprexa] 15 mg tablet 10 mg PO DAILY gabapentin 800 mg tablet PO TID rizatriptan [Maxalt-CRACKER DOUGH MIXER] 10 mg tablet,disintegrating See Rx Instructions PO .COMPLEX Rx Instructions: take 1 tab at onset of headache; if no relief may repeat 1 tab after at least 2 hrs; max = 3 tabs/24 hr PO omeprazole 40 mg capsule,delayed release(DR/EC) 40 mg PO DAILY Referrals: Winston Ryan MD [Primary Care Provider] - Stand Alone Forms: Patient Portal/API/Survey
== END 2024-08-04 20:33 | disposition home or self-care (01) ==
PROVIDERS: Emergency Medicine; Emergency Provider Emergency Medicine; Family Provider Family Medicine; PCP Family Medicine
DX: R10.11 Right upper quadrant pain (principal); K76.0 Fatty (change of) liver, not elsewhere classified
CPT/HCPCS: 36415; 76705; 80053; 81003; 81025; 83690; 85025; 93005; 93010; 99283; 99284

== ENCOUNTER → 2025-06-18 14:18 | Outpatient (CLI) | payer OTHER, SELFPAY ==
--- NOTE | 2025-07-01 09:40 | DIAB.MNT ---
Initial Diabetes Medical Nutrition Therapy Assessment Name: Edith Rueda Date: 06/18/25 Time: 230-3p Dx: Type II Diabetes Provider: Shelby Edith presents for initial DM visit. Arrives late, which cut our visit short today. Reports newly dx with T2Dm 2 months ago. hgA1c of 8% 05/2025 Reports FH of Dm with father. States he experienced blindness and LE amputation. She seems motivated to manage her Dm. Endorses wt loss since November with wt of 300# and now reported at 276#. Endorses psych medication exacerbating elevated BG, which has now been d/c'd. Recently cut out sugar from diet. States she felt racing heart, sweaty, confusion, fatigue and nausea with giving up sugar. This has since improved. Diet Recall: sn: coffee with sf creamer +/- 1/2c strawberries and sf soda 2p: meals on wheels with pro, veg, carb, dessert included 5-8p: baked potato with butter and sour cream OR MOW OR pot roast with veg and potatoes sn: sometimes nuts, sf candy Anthropometrics: Ht: 65 Wt: 276# reported Weight history: Physical Activity: Not discussed Self-Monitoring Blood Glucose: using meter and checking 1-3x per week. Endorses average of 200s mg/dl but a few recently 108 and 114mg/dl. None for review today. Date Pre Post Pre Post Pre Post HS Diabetes Medications: 1000mg Metformin XR BID Pertinent Labs: HgA1c: 8% 05/2025 Past Medical History: (This Medical Record has been edited. Action required.) Abnormal uterine bleeding (AUB) Anxiety Autism Cervical radiculopathy Class 3 obesity Depression Morbid obesity due to excess calories PMDD (premenstrual dysphoric disorder) Nutrition Rx: Plate Method Nutrition Diagnosis: - Nutrition and food related knowledge deficit r/t newly dx T2Dm aeb pt report and hgA1c 8% Intervention: This participant was very receptive. Provided appropriate educational handouts. Discussed the following topics: Completed intake assessment. Bruef pathophysiology of T2DM HgA1c, its correlation to blood glucose numbers, and rationale for goal Importance of self-monitoring, how often, and when to check. Suggested checking at different times to evaluate meals Plate Method, impact of macronutrients on blood sugar, meal timing, pairing macronutrients and spreading out carbohydrates for better blood glucose management Recommended servings for carbohydrates at meals and snacks Created SMART goals for patient self-care and success. Goals: Bring meter next visit check FBG AIm for protein with each meal/snack Incorporate Hs snack Follow-up: ANA MCMULLEN follow-up in 3-4 weeks Gabrielle Pond RDN, B[facility] Certified Diabetes Care and Open H[employer] Helper P: [phone] Thank you for this referral
== END ==
LOC: DIET 14:20
PROVIDERS: PCP Family Medicine; Referring Provider Family Medicine
DX: E11.9 Type 2 diabetes mellitus without complications (principal); Z71.3 Dietary counseling and surveillance; Z79.84 Long term (current) use of oral hypoglycemic drugs
CPT/HCPCS: 97802

== ENCOUNTER → 2025-07-01 13:55 | Outpatient (CLI) | payer OTHER, SELFPAY ==
--- NOTE | 2025-07-01 15:17 | DIAB.MNTFU ---
Follow-up Diabetes Medical Nutrition Therapy Assessment Name: Edith Rueda Date: 07/01/25 Time: 155-237p Dx: Type II Diabetes Provider: Shelby Sharma presents for DM visit, accompanied by caregiver, Sol. Tearful today discussing how difficult it is to balance food choices. Feels she over ate over for a few days. Endorses frustrations with her weight. Reports behaviors consistent with stress eating and subsequential guilt. Sees counselor tomorrow. Has a stressful situation with neighbor, previous friend. After a stressful interaction then at desserts from MOW, pasta, and pb with jelly no bread. States she previously use to cut herself when stressed, but has avoided this. Noticed stress eating may be taking the place of this. Endorses financial and cooking knowledge barriers. Likes certain healthy foods that are too expensive. Feels there is room in her budget for more veggies and Sol is willing to help make more veggies for her. Interested in GLP1 but states her provider would like to avoid these. Has questions about Se of GLP1. Sees PCP next week. She may be a good candidate since she is struggling with wt loss and BG management. Added protein to HS snack consistently Last Diet Recall: sn: coffee with sf creamer +/- 1/2c strawberries and sf soda 2p: meals on wheels with pro, veg, carb, dessert included 5-8p: baked potato with butter and sour cream OR MOW OR pot roast with veg and potatoes sn: sometimes nuts, sf candy Anthropometrics: Ht: 65 Wt: 276# today in clinic (pt requested weigh in) 276# reported 05/2025 Weight history: Physical Activity: Not discussed Self-Monitoring Blood Glucose: Brought meter today. 11/02 elevated FBG >130mg/dl Date Pre Post Pre Post Pre Post HS 06/17 108 06/19 106 06/21 137 06/22 140 06/23 140 06/25 147 118 07/01 115 Diabetes Medications: 1000mg Metformin XR BID 20u Lantus AM Pertinent Labs: HgA1c: 8% 05/2025 Past Medical History: (This Medical Record has been edited. Action required.) Abnormal uterine bleeding (AUB) Anxiety Autism Cervical radiculopathy Class 3 obesity Depression Morbid obesity due to excess calories PMDD (premenstrual dysphoric disorder) Nutrition Rx: Plate Method Nutrition Diagnosis: - Nutrition and food related knowledge deficit r/t newly dx T2Dm aeb pt report and hgA1c 8% - Excessive CHO intake r/t stress eating aeb pt report Intervention: This participant was very receptive. Provided appropriate educational handouts. Discussed the following topics: Stress eating strategies Affordable veggie/fruit strategies GLP1 pro/cons, precautions, benefits weight management Encouraged discussion about stress management with counselor Created SMART goals for patient self-care and success. Goals: Bring meter next - metvisit check FBG- met AIm for protein with each meal/snack- met Incorporate Hs snack - met Discuss potential for GLP1 with PCP- new Practice stress eating awareness and forgiveness- new Follow-up: ANA MCMULLEN follow-up in 3-4 weeks. Plans to discuss physical activity options/limitations next visit. Gabrielle Pond RDN, CDCES Certified Diabetes Care and Professional Fee Coder P: [phone] Thank you for this referral
== END ==
LOC: DIET 13:56
PROVIDERS: PCP Family Medicine; Referring Provider Family Medicine
DX: E11.9 Type 2 diabetes mellitus without complications (principal); Z71.3 Dietary counseling and surveillance; Z79.84 Long term (current) use of oral hypoglycemic drugs; Z79.4 Long term (current) use of insulin
CPT/HCPCS: 97803